=== PATIENT | male | born 1965 | race Caucasian/White ===

== ENCOUNTER → 2016-03-19 | Outpatient (CLI) | payer MEDICARE ==
--- NOTE | 2016-03-19 22:41 | MR ---
EXAMINATION TYPE: MR brain wo con DATE OF EXAM: 03/19/2016 6:41 PM COMPARISON: NONE HISTORY: Type 1 diabetes with neuropathy and memory loss per order. Dizziness and forgetfulness per p atient. TECHNIQUE: Multiplanar, multisequence imaging of the brain and brainstem is performed without IV cont rast. FINDINGS: Diffusion weighted images demonstrate no evidence of a recent infarct or other diffusion abnormality. There is no worrisome extra-axial fluid collection. There is ventricular and sulcal prominence consis tent with mild age-related cerebral atrophy.. Midline structures demonstrate normal morphology. The craniocervical junction appears within normal limits. Loss of normal flow void suggest complete thrombosis of distal left vertebral artery. There i s fluid-filled left maxillary sinus. There is patchy fluid signal posterior left ethmoid sinuses. Rem ainder paranasal sinuses are clear. Globes are intact IMPRESSION: 1. Probable thrombosis or complete occlusion distal left vertebral artery. Consider carotid ultrasoun d follow-up. 2. Mild diffuse cerebral atrophy. 3. Acute left maxillary and posterior ethmoid sinus disease suspected. Clinical correlation advised.
== END | disposition home or self-care (01) ==
LOC: RADMRIMAIN 17:26
PROVIDERS: ATTEND Psychiatry & Neurology Neurology
DX: G31.9 Degenerative disease of nervous system, unspecified (principal); E10.40 Type 1 diabetes mellitus with diabetic neuropathy, unspecified
CPT/HCPCS: 70551

== ENCOUNTER 2016-05-08 23:25 | Observation (INO) | payer MEDICARE ==
--- NOTE | 2016-05-09 00:17 | ED ---
General Adult HPI - General Chief complaint: Chest Pain Stated complaint: HBP/Chest tightness Time Seen by Provider: 05/08/16 23:37 Source: patient, family, RN notes reviewed, old records reviewed Mode of arrival: ambulatory Limitations: no limitations - History of Present Illness Initial comments: This is a 50-year-old male ER for evaluation of chest pain. Patient suffered from diabetes and high blood pressure. Patient presented with anterior chest pain doctor, patient states he took his blood pressure and blood sugar at home both elevated. No prior history of cardiac evaluation or workup. Patient remains a chest pain now. No worsening of symptoms no exacerbating of symptoms , the heaviness appears to come and go - Related Data Allergies Allergy/AdvReac Type Severity Reaction Status Date / Time Sulfa (Sulfonamide Allergy Unknown Verified 05/08/16 23:32 Antibiotics) Review of Systems ROS Statement: Those systems with pertinent positive or pertinent negative responses have been documented in the HPI. ROS Other: All systems not noted in ROS Statement are negative. Past Medical History Past Medical History: Diabetes Mellitus, Hypertension Additional Past Medical History / Comment(s): neuropathy, History of Any Multi-Drug Resistant Organisms: None Reported Past Surgical History: Cholecystectomy Past Psychological History: No Psychological Hx Reported Smoking Status: Never smoker Past Alcohol Use History: None Reported Past Drug Use History: None Reported General Exam Limitations: no limitations General appearance: alert, in no apparent distress, anxious Head exam: Present: atraumatic, normocephalic, normal inspection Eye exam: Present: normal appearance, PERRL, EOMI. Absent: scleral icterus, conjunctival injection, periorbital swelling ENT exam: Present: normal exam, mucous membranes moist Neck exam: Present: normal inspection. Absent: tenderness, meningismus, lymphadenopathy Respiratory exam: Present: normal lung sounds bilaterally. Absent: respiratory distress, wheezes, rales, rhonchi, stridor Cardiovascular Exam: Present: regular rate, normal rhythm, normal heart sounds. Absent: systolic murmur, diastolic murmur, rubs, gallop, clicks GI/Abdominal exam: Present: soft, normal bowel sounds. Absent: distended, tenderness, guarding, rebound, rigid Extremities exam: Present: normal inspection, full ROM, normal capillary refill. Absent: tenderness, pedal edema, joint swelling, calf tenderness Back exam: Present: normal inspection Neurological exam: Present: alert, oriented X3, CN II-XII intact Psychiatric exam: Present: normal affect, normal mood Skin exam: Present: warm, dry, intact, normal color. Absent: rash Course Vital Signs 05/08/16 05/08/16 23:28 23:42 Temperature 98 F Pulse Rate 96 91 Respiratory 20 18 Rate Blood Pressure 195/88 184/84 O2 Sat by Pulse 98 98 Oximetry - Reevaluation(s) Reevaluation #1: 05/09/16 01:42 Date patient still chest pain, consult 15 minutes regarding disease process recommends admission, patient is agreeable EKG Findings - EKG Comments: EKG Findings:: EKG shows normal sinus rhythm rate of 89, OH 140, QRS 86, QTC 425 Medical Decision Making - Medical Decision Making 50 mailed ER for reevaluation chest pain. Patient doesn't from diabetes and high blood pressure, recent elevated blood sugar elevated blood pressure and chest pain and heaviness. Patient not feeling well. Patient will be admitted for cardiac observation and anticoagulation in this serial troponins. Telemetry - Lab Data Result diagrams: 05/08/16 23:48 05/08/16 23:48 Lab Results 05/08/16 05/08/16 05/08/16 Range/Units 23:48 23:48 23:48 WBC 7.3 (3.8-10.6) k/uL RBC 4.75 (4.30-5.90) m/uL Hgb 14.5 (13.0-17.5) gm/dL Hct 44.7 (39.0-53.0) % MCV 94.1 (80.0-100.0) fL MCH 30.5 (25.0-35.0) pg MCHC 32.3 (31.0-37.0) g/dL RDW 12.7 (11.5-15.5) % Plt Count 317 (150-450) k/uL Neutrophils % 59 % Lymphocytes % 27 % Monocytes % 7 % Eosinophils % 4 % Basophils % 0 % Neutrophils # 4.3 (1.3-7.7) k/uL Lymphocytes # 1.9 (1.0-4.8) k/uL Monocytes # 0.5 (0-1.0) k/uL Eosinophils # 0.3 (0-0.7) k/uL Basophils # 0.0 (0-0.2) k/uL PT (9.0-12.0) sec INR (<1.1) APTT (22.0-30.0) sec Sodium 134 L (137-145) mmol/L Potassium 4.9 (3.5-5.1) mmol/L Chloride 103 (98-107) mmol/L Carbon Dioxide 22 (22-30) mmol/L Anion Gap 9 mmol/L BUN 16 (9-20) mg/dL Creatinine 1.10 (0.66-1.25) mg/dL Est GFR (MDRD) Af Amer >60 (>60 ml/min/1.73 sqM) Est GFR (MDRD) Non-Af >60 (>60 ml/min/1.73 sqM) Glucose 259 H (74-99) mg/dL Calcium 9.0 (8.4-10.2) mg/dL Magnesium 1.8 (1.6-2.3) mg/dL Total Bilirubin 0.3 (0.2-1.3) mg/dL AST 22 (17-59) U/L ALT 33 (21-72) U/L Alkaline Phosphatase 110 (38-126) U/L Total Creatine Kinase 62 (55-170) U/L CK-MB (CK-2) 1.5 (0.0-2.4) ng/mL CK-MB (CK-2) Rel Index 2.4 Troponin I <0.012 (0.000-0.034) ng/mL Total Protein 6.5 (6.3-8.2) g/dL Albumin 3.7 (3.5-5.0) g/dL Lipase 73 (23-300) U/L 05/08/16 Range/Units 23:48 WBC (3.8-10.6) k/uL RBC (4.30-5.90) m/uL Hgb (13.0-17.5) gm/dL Hct (39.0-53.0) % MCV (80.0-100.0) fL MCH (25.0-35.0) pg MCHC (31.0-37.0) g/dL RDW (11.5-15.5) % Plt Count (150-450) k/uL Neutrophils % % Lymphocytes % % Monocytes % % Eosinophils % % Basophils % % Neutrophils # (1.3-7.7) k/uL Lymphocytes # (1.0-4.8) k/uL Monocytes # (0-1.0) k/uL Eosinophils # (0-0.7) k/uL Basophils # (0-0.2) k/uL PT 9.7 (9.0-12.0) sec INR 0.9 (<1.1) APTT 23.7 (22.0-30.0) sec Sodium (137-145) mmol/L Potassium (3.5-5.1) mmol/L Chloride (98-107) mmol/L Carbon Dioxide (22-30) mmol/L Anion Gap mmol/L BUN (9-20) mg/dL Creatinine (0.66-1.25) mg/dL Est GFR (MDRD) Af Amer (>60 ml/min/1.73 sqM) Est GFR (MDRD) Non-Af (>60 ml/min/1.73 sqM) Glucose (74-99) mg/dL Calcium (8.4-10.2) mg/dL Magnesium (1.6-2.3) mg/dL Total Bilirubin (0.2-1.3) mg/dL AST (17-59) U/L ALT (21-72) U/L Alkaline Phosphatase (38-126) U/L Total Creatine Kinase (55-170) U/L CK-MB (CK-2) (0.0-2.4) ng/mL CK-MB (CK-2) Rel Index Troponin I (0.000-0.034) ng/mL Total Protein (6.3-8.2) g/dL Albumin (3.5-5.0) g/dL Lipase (23-300) U/L - Radiology Data Radiology results: report reviewed (Chest x-ray is negative for acute disease), image reviewed Critical Care Time Critical Care Time: Yes Total Critical Care Time: 31 Disposition Clinical Impression: Chest pain Disposition: ADMITTED IP TO THIS [facility] Condition: Undetermined Referrals: Sunday Contreras MD [Primary Care Provider] - 1-2 days
[2016-05-09 00:36] LABS: Basophils % (A) 0 %; CH 30.4; CHCM 32.4; Eosinophils # (A) 0.3 k/uL (0-0.7); Eosinophils % (A) 4 %; HCT 44.7 % (39.0-53.0); HDW 2.48; HGB 14.5 gm/dL (13.0-17.5); Luc # (Auto) 0.24; Luc % (Auto) 3; Lymphocytes # (A) 1.9 k/uL (1.0-4.8); Lymphocytes % (A) 27 %; MCH 30.5 pg (25.0-35.0); MCHC 32.3 g/dL (31.0-37.0); MCV 94.1 fL (80.0-100.0); Mean Platelet Volume 7.2; Monocytes # (A) 0.5 k/uL (0-1.0); Monocytes % (A) 7 %; Neutrophils # (A) 4.3 k/uL (1.3-7.7); Neutrophils % (A) 59 %; RBC 4.75 m/uL (4.30-5.90); RDW 12.7 % (11.5-15.5); WBC 7.3 k/uL (3.8-10.6)
[2016-05-09 00:50] LABS: INR 0.9 (<1.1); Partial Thromboplastin Time 23.7 sec (22.0-30.0); Prothrombin Time 9.7 sec (9.0-12.0)
[2016-05-09 00:51] LABS: ALT 33 U/L (21-72); AST 22 U/L (17-59); Alkaline Phosphatase 110 U/L (38-126); Anion Gap 9 mmol/L; Blood Urea Nitrogen 16 mg/dL (9-20); Carbon Dioxide 22 mmol/L (22-30); Chloride 103 mmol/L (98-107); Glucose 259 mg/dL (74-99); Magnesium 1.8 mg/dL (1.6-2.3); Non-African American GFR(MDRD) >60 (>60 ml/min/1.73 sqM); Potassium 4.9 mmol/L (3.5-5.1); Sodium 134 mmol/L (137-145); Total Bilirubin 0.3 mg/dL (0.2-1.3); Total Protein 6.5 g/dL (6.3-8.2)
[2016-05-09 01:01] LABS: Creatine Kinase 62 U/L (55-170)
[2016-05-09 01:14] LABS: Creatine Kinase MB 1.5 ng/mL (0.0-2.4); Troponin I <0.012 ng/mL (0.000-0.034)
--- NOTE | 2016-05-09 01:14 | XR ---
EXAM: XR Chest, 2 Views. CLINICAL HISTORY: Reason: Chest Pain TECHNIQUE: Frontal and lateral views of the chest. COMPARISON: No relevant prior studies available. FINDINGS There is mild cardiomegaly. No overt pulmonary edema. Mild subsegmental atelectasis to the left midlung. No pleural effusion or pneumothorax. No displaced fracture. IMPRESSION: Cardiomegaly. Left midlung atelectasis. No clear acute pulmonary disease.
[2016-05-09] MEDS ORDERED: HEPARIN SODIUM,PORCINE 5,000 UNIT/ML 1 ML VIAL IV PRN (01:38)
[2016-05-09] MEDS ORDERED: MORPHINE SULFATE 4 MG/ML SYRINGE IV PRN (01:38)
[2016-05-09] MEDS ORDERED: HEPARIN SODIUM,PORCINE 5,000 UNIT/ML 1 ML VIAL IV ONE (01:38)
[2016-05-09] MEDS ORDERED: ASPIRIN 81 MG CHEW PO STA (01:38)
[2016-05-09] MEDS ORDERED: NITROGLYCERIN SL TABS 0.4 MG TAB SUBLINGUAL PRN (01:38)
[2016-05-09] MEDS ORDERED: HEPARIN SODIUM,PORCINE/D5W PMX 25,000 UNIT in DEXTROSE/WATER 1 500ML.BAG IV SCH (01:45)
[2016-05-09 04:07] LABS: Glucose,Whole Blood 218 mg/dL (75-99)
[2016-05-09 05:49] LABS: Mean Platelet Volume 6.9
[2016-05-09 06:10] LABS: Creatine Kinase 283 U/L (55-170)
[2016-05-09 06:23] LABS: Troponin I <0.012 ng/mL (0.000-0.034)
[2016-05-09 06:31] LABS: Creatine Kinase MB 4.2 ng/mL (0.0-2.4)
[2016-05-09] MEDS ORDERED: INSULIN LISPRO (humaLOG) 300 UNIT/3 ML VIAL SQ SCH (07:30)
[2016-05-09 07:51] VITALS: RESP 18
[2016-05-09] MEDS ORDERED: REGADENOSON 0.4 MG/5 ML SYRINGE IV ONE (08:44)
[2016-05-09] MEDS ORDERED: AMINOPHYLLINE 500 MG/20 ML VIAL IV PRN (08:44)
[2016-05-09] MEDS ORDERED: BACLOFEN 10 MG TAB PO SCH (09:00)
[2016-05-09] MEDS ORDERED: LISINOPRIL 20 MG TAB PO SCH (09:00)
[2016-05-09] MEDS ORDERED: DULoxetine HCL 30 MG CAPSULE.DR PO SCH (09:00)
--- NOTE | 2016-05-09 09:12 | CONS ---
DATE OF CONSULTATION: CHIEF COMPLAINT: Uncontrolled hypertension. Sarbjit is a 50-year-old gentleman with history of insulin-requiring diabetes, peripheral neuropathy, hypertension, who actually came to hospital initially because of elevated and uncontrolled blood pressures. He also had nausea and was retching for a while. Following that, he developed vague chest pain, due to which he is admitted and Cardiology had been consulted. Past medical history is significant for hypertension and diabetes, peripheral neuropathy. Past surgical history is significant for cholecystectomy. Her is allergic to SULFA. Family history is significant for coronary artery disease in his father. Social history is negative for smoking, EtOH abuse, or drug abuse. REVIEW OF SYSTEMS: HEENT is significant for headache and nausea. CARDIAC: As described above. RESPIRATORY: Negative. GI: Negative. GENITOURINARY: Negative. ALLERGY/IMMUNOLOGY: Negative. SKIN: Negative. MUSCULOSKELETAL: Negative. ENDOCRINE: Negative. HEMATOLOGICAL: Negative. CONSTITUTIONAL: Negative. ONCOLOGICAL: Negative. NEUROLOGICAL: Significant for peripheral neuropathy. Medications at home include Zocor 20 q. daily, Pamelor, nifedipine, Reglan, lisinopril, Levoxyl, insulin, Neurontin, Cymbalta and aspirin. On exam, he is comfortable at rest. Vital signs are stable. There is no jugular venous distention. Carotid upstroke is normal. There is no bruit. Chest is clear to auscultation and percussion. Heart exam reveals first and second heart sounds. No gallop. No murmur, no rub. Abdomen is soft, nontender. Exam of the extremities did not reveal edema. Peripheral pulses are felt. [employer] exam did not reveal focal neurological deficits. Labs show that 2 sets of cardiac enzymes are negative. EKG does not reveal ischemic changes. Potassium is 4.9. Creatinine is 1.1. Hemoglobin is 14.5. ASSESSMENT: 1. Uncontrolled hypertension. 2. Chest pain, atypical, probably related to nausea, vomiting. 3. Multiple coronary risk factors including diabetes and hypertension. PLAN: Will control his blood pressures optimally, please resume the medications that he was on at home including the lisinopril and nifedipine and schedule him for a stress test and echocardiogram this morning and will decide on further course of action based on the test results.
[2016-05-09] MEDS ORDERED: NIFEdipine XL 30 MG TAB.ER.24 PO SCH (09:15)
[2016-05-09] MEDS ORDERED: INSULIN LISPRO (humaLOG) 300 UNIT/3 ML VIAL SQ PRN (09:44)
[2016-05-09] MEDS ORDERED: INSPUCOR MISCELLANE PRN (09:44)
[2016-05-09] MEDS ORDERED: INSULIN PUMP TARGET GLUCOSE 1 EACH MISC MISCELLANE PRN (09:44)
[2016-05-09] MEDS ORDERED: INSULIN PUMP ACTIVE INSULIN 1 EACH MISC MISCELLANE PRN (09:44)
[2016-05-09] MEDS ORDERED: INSULIN PUMP BASAL RATES 1 EACH MISC MISCELLANE PRN (09:44)
[2016-05-09] MEDS ORDERED: LEVOTHYROXINE 75 MCG TAB PO SCH (10:00)
[2016-05-09] MEDS ORDERED: INSULIN LISPRO (For Pump) 100 UNIT/ML VIAL SQ-PUMP SCH (10:00)
[2016-05-09] MEDS ORDERED: NORTRIPTYLINE 25 MG CAP PO SCH (10:00)
--- NOTE | 2016-05-09 11:13 | ECHOF ---
Referral Reason:chest pain MEASUREMENTS -------- HEIGHT: 162.6 cm WEIGHT: 88.5 kg BP: 150/75 RVIDd: 2.5 cm (< 3.3) IVSd: 1.1 cm (0.6 - 1.1) LVIDd: 4.1 cm (3.9 - 5.3) LVPWd: 1.1 cm (0.6 - 1.1) IVSs: 1.5 cm LVIDs: 2.8 cm LVPWs: 1.6 cm LA Diam: 3.0 cm (2.7 - 3.8) Ao Diam: 3.1 cm (2.0 - 3.7) AV Cusp: 2.1 cm (1.5 - 2.6) MV EXCURSION: 13.362 mm (> 18.000) MV EF SLOPE: 45 mm/s (70 - 150) EPSS: 0.3 cm MV E Robert: 0.80 m/s MV DecT: 282 ms MV A Robert: 1.01 m/s MV E/A Ratio: 0.79 FINDINGS -------- Sinus rhythm. This was a technically good study. The left ventricular size is normal. There is borderline concentric left ventricular hypertrophy. Overall left ventricular systolic function is normal with, an EF between 55 - 60 %. The right ventricle is normal in size and function. The left atrial size is normal. The right atrium is normal in size. The aortic valve is trileaflet and appears structurally normal. The mitral valve is normal. Trace tricuspid regurgitation present. The pulmonic valve was not well visualized. The aortic root, ascending aorta and aortic arch are normal. There is no pericardial effusion. CONCLUSIONS -------- 1. Sinus rhythm. 2. There is no pericardial effusion. 3. This was a technically good study. 4. There is borderline concentric left ventricular hypertrophy. 5. The left atrial size is normal. 6. The aortic valve is trileaflet and appears structurally normal. 7. The mitral valve is normal. 8. Trace tricuspid regurgitation present. 9. The pulmonic valve was not well visualized. 10. The aortic root, ascending aorta and aortic arch are normal. ROADMASTER: Gifty Jacques [facility]
[2016-05-09 11:51] VITALS: BP 144/74; PULSE 87; TEMP 98.3
[2016-05-09 11:59] LABS: Creatine Kinase 47 U/L (55-170)
[2016-05-09 12:12] LABS: Creatine Kinase MB 1.4 ng/mL (0.0-2.4); Troponin I <0.012 ng/mL (0.000-0.034)
[2016-05-09] MEDS ORDERED: METOCLOPRAMIDE 10 MG TAB PO SCH (12:30)
[2016-05-09] MEDS ORDERED: INSULIN PUMP MEAL BOLUS 1 UNIT MISC MISCELLANE SCH (12:30)
[2016-05-09 13:08] LABS: Hemoglobin A1C 7.3 % (4.2-6.1)
[2016-05-09 13:36] LABS: Glucose,Whole Blood 282 mg/dL (75-99)
--- NOTE | 2016-05-09 14:17 | NM ---
EXAMINATION TYPE: NM stress Lexiscan cardiolite DATE OF EXAM: 05/09/2016 1:32 PM COMPARISON: EXAMINATION TYPE: NM stress Lexiscan cardiolite DATE OF EXAM: 05/09/2016 1:32 PM COMPARISON: NONE HISTORY: Chest pain TECHNIQUE: After the intravenous administration of 10.5 mCi Tc 99m Sestamibi - Cardiolite resting SP ECT images acquired 45 minutes post injection. The patient received 0.4mg Lexiscan, 26.6 mCi Tc 99m Sestamibi - Stress images obtained [address] injection FINDINGS: Review of stress and rest SPECT images demonstrates no distinct perfusion abnormality. Gated analysi s shows normal wall motion with an estimated left ventricular ejection fraction of 91 %. IMPRESSION: I DO NOT SEE CONVINCING EVIDENCE OF INDUCIBLE ISCHEMIC CHANGE AT THIS TIME.
--- NOTE | 2016-05-09 15:09 | EST ---
DATE OF SERVICE: 05/09/2016 AGE: 50Y SEX: M HT: 64" WT: 195 lbs. Lexiscan Cardiolite Stress Test *Heart Rate Blood Pressure *Rest: 82 Rest: 175/81 * *Max. Achieved: 118 Maximum BP: 193/61 85% PMHR: - 100% PMHR: - *METS: - INDICATIONS: Chest pain. MEDICATIONS: - Baseline rhythm is sinus mechanism, rate of 82, normal axis and intervals. Normal electrocardiogram. Baseline blood pressure 175/81 mmHg. Patient received injection of Lexiscan. Electrocardiograph monitoring revealed no evidence of diagnostic ischemic ST deviation. Cardiolite was injected per protocol. CONCLUSION: 1. Nondiagnostic electrocardiograph stress testing. 2. Nuclear images will be reported separately.
--- NOTE | 2016-05-09 15:45 | P.HPIM ---
History of Present Illness H&P Date: 05/09/16 (DC summary as well) Chief Complaint: Chest pain 50-year-old gentleman with history of hypertension, hypothyroidism, diabetes mellitus type 1 comes in to the hospital with complains of chest pressure. Patient initially noted an elevated blood pressure in the 190 systolic range. Patient also had a headache and generalized weakness during the same period of time. With concern for a heart attack as referred by one of his family members patient came to the hospital for ongoing care. The in the emergency room patient's blood pressure was still elevated however it improved without any further intervention. EKG did not reveal ST-T wave changes. Patient's home medications were restarted. Patient underwent a stress test, Lexiscan which was negative for any reversible ischemia. Patient apparently has been having multiple episodes of elevated blood pressure associated with headaches and malaize for a long time. Review of Systems All systems: negative (Noted in HPI) Past Medical History Past Medical History: Diabetes Mellitus, Hypertension, Thyroid Disorder Additional Past Medical History / Comment(s): neuropathy, insulin pump History of Any Multi-Drug Resistant Organisms: None Reported Past Surgical History: Cholecystectomy Additional Past Surgical History / Comment(s): carpal tunnel release Past Anesthesia/Blood Transfusion Reactions: No Reported Reaction Past Psychological History: No Psychological Hx Reported Smoking Status: Never smoker Past Alcohol Use History: None Reported Past Drug Use History: None Reported - Past Family History Father Family Medical History: Coronary Artery Disease (CAD) Mother Family Medical History: Cancer Additional Family Medical History / Comment(s): brain cancer, choley, appy, hysto Brother(s) Family Medical History: Diabetes Mellitus Sister(s) Family Medical History: Cancer Additional Family Medical History / Comment(s): breast cancer Medications and Allergies Home Medications Medication Instructions Recorded Confirmed Type Aspirin [Adult Low Dose Aspirin EC] 81 mg PO DAILY 05/09/16 05/09/16 History Baclofen [Lioresal] 10 mg PO DAILY 05/09/16 05/09/16 History DULoxetine HCL [Cymbalta] 30 mg PO DAILY 05/09/16 05/09/16 History Gabapentin [Neurontin] 800 mg PO TID 05/09/16 05/09/16 History INSULIN LISPRO (For Pump) [humaLOG 0.01 units SQ-PUMP CONTINUOUS 05/09/16 History (For Pump)] Levothyroxine Sodium [Levoxyl] 150 mcg PO DAILY 05/09/16 05/09/16 History Lisinopril [Zestril] 20 mg PO BID 05/09/16 05/09/16 History Metoclopramide [Reglan] 10 mg PO ACHS 05/09/16 05/09/16 History NIFEdipine [NIFEdipine ER] 30 mg PO DAILY 05/09/16 05/09/16 History Nortriptyline HCl [Pamelor] 75 mg PO DAILY 05/09/16 05/09/16 History Simvastatin [Zocor] 20 mg PO HS 05/09/16 05/09/16 History Allergies Allergy/AdvReac Type Severity Reaction Status Date / Time Sulfa (Sulfonamide Allergy Unknown Verified 05/09/16 07:45 Antibiotics) Physical Exam Vitals: Vital Signs Temp Pulse Pulse Pulse Resp BP BP 05/09/16 11:50 98.3 F 87 18 05/09/16 07:50 97.4 F L 83 18 05/09/16 04:00 98 F 79 16 151/76 05/09/16 03:33 16 05/09/16 02:49 98.1 F 88 16 177/85 05/09/16 02:00 80 18 179/72 BP Pulse Ox 05/09/16 11:50 144/74 96 05/09/16 07:50 150/75 96 05/09/16 04:00 97 05/09/16 03:33 05/09/16 02:49 100 05/09/16 02:00 96 Intake and Output 05/09/16 05/09/16 05/09/16 06:59 14:59 22:59 Intake Total 80 Balance 80 Intake: IV 80 0.9@20 40 Heparin Sodium,Porcine/ 40 D5w Pmx 25,000 unit In Dextrose/Water 1 500ml. bag @ 11.35 UNITS/KG/HR 20.07 mls/hr IV .Q24H TREASURE Rx#:[id number] Oral 0 Other: Voiding Method Toilet Toilet # Voids 1 Physical exam Gen. appearance oriented 3 in no distress Neck is supple no JVD Lungs good air entry clear to auscultation no rhonchi or wheezing Heart S1-S2 heard regular rate and rhythm no murmurs appreciated Abdomen is soft nontender no organomegaly bowel sounds are intact Neurologically cranial nerves II-12 grossly intact no focal motor or sensory deficits noted Skin no abnormalities appreciated Results CBC & Chem 7: 05/09/16 05:32 05/08/16 23:48 Labs: Abnormal Lab Results - Last 24 Hours (Table) 05/09/16 05/09/16 05/09/16 Range/Units 04:05 05:32 05:32 APTT (22.0-30.0) sec POC Glucose (mg/dL) 218 H (75-99) mg/dL Hemoglobin A1c 7.3 H (4.2-6.1) % Total Creatine Kinase 283 H (55-170) U/L CK-MB (CK-2) 4.2 H* (0.0-2.4) ng/mL 05/09/16 05/09/16 05/09/16 Range/Units 08:25 11:20 13:34 APTT 31.0 H (22.0-30.0) sec POC Glucose (mg/dL) 282 H (75-99) mg/dL Hemoglobin A1c (4.2-6.1) % Total Creatine Kinase 47 L (55-170) U/L CK-MB (CK-2) (0.0-2.4) ng/mL Thrombosis Risk Factor Assmnt - Choose All That Apply Any of the Below Risk Factors Present?: Yes Each Factor Represents 1 point: Acute VT, Obesity (BMI >25) Other Risk Factors: No Other congenital or acquired thrombophilia - If yes, enter type in comment: No Thrombosis Risk Factor Assessment Total Risk Factor Score: 2 Thrombosis Risk Factor Assessment Level: Low Risk Assessment and Plan Plan: #1 accelerated hypertension #2 atypical chest pain ACS was ruled out #3 diabetes mellitus type 1 #4 hypothyroidism #5 dyslipidemia Plan Patient's intermittent episodes of headaches and hypertension as patient is normotensive majority of the time and has had these episodes for a long period of time. Serum metanephrines were ordered. This is to rule out a pheochromocytoma. If this is negative I'll defer to Dr. Sunday tucker for 24 hour urine metanephrine collection.
[2016-05-09] MEDS ORDERED: GABAPENTIN 400 MG CAP PO SCH (16:00)
[2016-05-09] MEDS ORDERED: ATORVASTATIN 10 MG TAB PO SCH (21:00)
[2016-05-10] MEDS ORDERED: NON-FORMULARY DRUG (Aspirin [Adult Low Dose Aspirin Ec] 81 MG) PO SCH (09:00)
[2016-05-10] MEDS ORDERED: ASPIRIN 325 MG TAB PO SCH (09:00)
[2016-05-15 13:36] LABS: Metanephrine, Free 26 pg/mL (< OR = 57); Total, Free (MN + NMN) 329 pg/mL (< OR = 205)
== END 2016-05-09 16:00 | disposition home or self-care (01) ==
LOC: EC 23:25 → 3OBS 05-09 01:38
PROVIDERS: ADMIT Hospitalist; ATTEND Hospitalist
DX: R07.89 Other chest pain (principal); Z88.2 Allergy status to sulfonamides; I10 Essential (primary) hypertension; E03.9 Hypothyroidism, unspecified; E10.42 Type 1 diabetes mellitus with diabetic polyneuropathy; Z82.49 Family history of ischemic heart disease and other diseases of the circulatory system; Z80.8 Family history of malignant neoplasm of other organs or systems; Z79.82 Long term (current) use of aspirin; Z79.899 Other long term (current) drug therapy; E78.5 Hyperlipidemia, unspecified; Z96.41 Presence of insulin pump (external) (internal)
CPT/HCPCS: 96365 ×2; 96376 ×2; 99291 ×2; 36415; 93005; 93017; 93306; 83835; 80053; 83036; 82550; 82553; 83690; 83735; 84484; 85025; 85049; 85610; 85730; 71020; 78452; G0378; A9500; J1644 ×2; J2785

== ENCOUNTER → 2020-05-02 | Outpatient (CLI) | payer MEDICARE ==
[2020-05-02 20:30] LABS: Hemoglobin A1C 6.9 % (4.0-6.0)
[2020-05-02 20:56] LABS: African American GFR (CKD) 86.5 (60.0-200.0); Albumin 4.2 g/dL (3.80-4.90); Albumin/Globulin Ratio 2.1 (1.60-3.17); Anion Gap 8.5 mmol/L (4.00-12.00); BUN/Creat Ratio 13.64 Ratio (12.00-20.00); Calcium 9.3 mg/dL (8.7-10.3); Carbon Dioxide 21.5 mmol/L (21.6-31.8); Chol/HDL Ratio 2.94; Non-African American GFR(CKD) 74.6 (60.0-200.0); Potassium 5.1 mmol/L (3.5-5.5); Total Bilirubin 0.2 mg/dL (0.2-1.2); Total Protein 6.2 g/dL (6.2-8.2)
[2020-05-03 01:20] LABS: Urine Creatinine 71.1 mg/dL
== END | disposition home or self-care (01) ==
LOC: LABWHC1 12:09
PROVIDERS: ATTEND Internal Medicine Endocrinology, Diabetes & Metabolism
DX: E11.65 Type 2 diabetes mellitus with hyperglycemia (principal)
CPT/HCPCS: 36415; 80053; 80061; 82043; 82570; 83036

== ENCOUNTER → 2021-01-08 | Outpatient (CLI) | payer MEDICARE ==
--- NOTE | 2021-01-08 21:33 | XR ---
EXAMINATION TYPE: XR knee complete LT, XR tibia fibula LT, XR foot complete LT, XR ankle complete LT DATE OF EXAM: 01/08/2021 CLINICAL HISTORY: Pain after fall injury. TECHNIQUE: Three views of the left knee, ankle, and foot are obtained. 2 views left leg. COMPARISON: None. FINDINGS: There is no acute fracture/dislocation evident in left knee. Meniscal calcification is pre sent. Moderate narrowing medial lateral tibiofemoral compartments. No significant spurring. Overlying soft tissue is unremarkable. Images of the left leg show no acute fracture or dislocation in the tibia or fibula. Overlying soft t issue is unremarkable. Images of the left ankle show moderate subcutaneous edema and soft tissue swelling. On lateral view t here is subtle step-off suspicious for minimally displaced fracture through the lateral malleolus. An kle mortise shows asymmetric lateral narrowing. Medial and posterior malleoli are intact. Moderate to large size inferior calcaneal spur. Images of the left foot show flexion of the toes. There is small vessel arterial vascular calcificati on. Mild to moderate diffuse soft tissue swelling. No acute displaced fracture. IMPRESSION: Soft tissue swelling and subcutaneous edema distally. Suspect acute minimally displaced o blique fracture through the lateral malleolus. Suspect acute or old injury with ankle mortise asymmet ry suggesting ligamentous disruption or tear. Advise orthopedic referral.
== END | disposition home or self-care (01) ==
LOC: RADXRMAIN 17:28
PROVIDERS: ATTEND Internal Medicine
DX: R60.0 Localized edema (principal); W19.XXXA Unspecified fall, initial encounter

== ENCOUNTER 2021-05-21 11:23 | Observation (INO) | payer MEDICARE ==
[2021-05-21] MEDS ORDERED: ASPIRIN 81 MG PO STA (12:10)
[2021-05-21] MEDS ORDERED: NITROGLYCERIN OINT 1 INCH/GM PACKET TOPICAL STA (12:10)
--- NOTE | 2021-05-21 12:21 | ED ---
General Adult HPI - General Chief complaint: Chest Pain Stated complaint: Chest pain/arm numbness Time Seen by Provider: 05/21/21 11:35 Source: patient, RN notes reviewed, old records reviewed Mode of arrival: wheelchair Limitations: no limitations - History of Present Illness Initial comments: This is a 55-year-old male with a past medical history significant for diabetes high blood pressure. Patient comes in today because he has been experiencing c hest pain across his chest and on his arms for the last 2 weeks he states getting progressively worse. Patient states this week and it was significantly worse. Patient denies any shortness of breath. Patient denies any diaphoretic episodes. Patient denies any nausea or vomiting. Patient is abdominal pain. Patient states he is very irritated because he is here he stated he didn't want to come in but his and doctor told me headache. Patient denies any fever chills or cough. Patient has any back pain. Patient denies any headache or lightheadedness. - Related Data Home Medications Medication Instructions Recorded Confirmed Baclofen [Lioresal] 10 mg PO HS 05/09/16 05/21/21 DULoxetine HCL [Cymbalta] 30 mg PO BID 05/09/16 05/21/21 Gabapentin [Neurontin] 800 mg PO QID 05/09/16 05/21/21 INSULIN LISPRO (For Pump) [humaLOG 0.01 units SQ-PUMP CONTINUOUS 05/09/16 05/21/21 (For Pump)] Levothyroxine Sodium [Levoxyl] 150 mcg PO DAILY 05/09/16 05/21/21 Nortriptyline HCl [Pamelor] 75 mg PO HS 05/09/16 05/21/21 Simvastatin [Zocor] 20 mg PO HS 05/09/16 05/21/21 Aspirin EC [Ecotrin] 325 mg PO DAILY 05/21/21 05/21/21 Cholecalciferol (Vitamin D3) 75 mcg PO DAILY 05/21/21 05/21/21 [Vitamin D3 (3000 Iu)] Lisinopril-Hctz 20-25 mg 1 tab PO DAILY 05/21/21 05/21/21 [Zestoretic 20-25] NIFEdipine [NIFEdipine ER] 30 mg PO DAILY 05/21/21 05/21/21 Nortriptyline [Pamelor] 25 mg PO QAM 05/21/21 05/21/21 Vitamin B (Unknown) 1 tab PO DAILY 05/21/21 05/21/21 Allergies Allergy/AdvReac Type Severity Reaction Status Date / Time Sulfa (Sulfonamide Allergy Unknown Verified 05/21/21 13:14 Antibiotics) Childhood Review of Systems ROS Statement: Those systems with pertinent positive or pertinent negative responses have been documented in the HPI. ROS Other: All systems not noted in ROS Statement are negative. Past Medical History Past Medical History: Diabetes Mellitus, Hypertension, Thyroid Disorder Additional Past Medical History / Comment(s): neuropathy, insulin pump History of Any Multi-Drug Resistant Organisms: None Reported Past Surgical History: Cholecystectomy Additional Past Surgical History / Comment(s): carpal tunnel release Past Anesthesia/Blood Transfusion Reactions: No Reported Reaction Past Psychological History: No Psychological Hx Reported Smoking Status: Never smoker Past Alcohol Use History: None Reported Past Drug Use History: None Reported - Past Family History Father Family Medical History: Coronary Artery Disease (CAD) Mother Family Medical History: Cancer Additional Family Medical History / Comment(s): brain cancer, choley, appy, hysto Brother(s) Family Medical History: Diabetes Mellitus Sister(s) Family Medical History: Cancer Additional Family Medical History / Comment(s): breast cancer General Exam - General Exam Comments Initial Comments: GENERAL: Patient is well-developed and well-nourished. Patient is nontoxic and well- hydrated and is in no acute distress. ENT: Neck is soft and supple. No significant lymphadenopathy is noted. Oropharynx is clear. Moist mucous membranes. Neck has full range of motion without eliciting any pain. EYES: The sclera were anicteric and conjunctiva were pink and moist. Extraocular movements were intact and pupils were equal round and reactive to light. Eyelids were unremarkable. PULMONARY: Unlabored respirations. Good breath sounds bilaterally. No audible rales rhonchi or wheezing was noted. CARDIOVASCULAR: There is a regular rate and rhythm without any murmurs gallops or rubs. ABDOMEN: Soft and nontender with normal bowel sounds. SKIN: Skin is clear with no lesions or rashes and otherwise unremarkable. NEUROLOGIC: Patient is alert and oriented x3. Cranial nerves II through XII are grossly intact. Motor and sensory are also intact. Normal speech, volume and content. Symmetrical smile. MUSCULOSKELETAL: Normal extremities with adequate strength and full range of motion. No lower extremity swelling or edema. No calf tenderness. LYMPHATICS: No significant lymphadenopathy is noted PSYCHIATRIC: Normal psychiatric evaluation. Patient is upset that he is here and he is swearing about the fact that he had to come in at all. Limitations: no limitations Course Vital Signs 05/21/21 05/21/21 11:32 14:16 Temperature 98 F Pulse Rate 97 81 Respiratory 16 16 Rate Blood Pressure 181/92 164/79 O2 Sat by Pulse 97 97 Oximetry Medical Decision Making - Medical Decision Making EKG shows sinus rhythm at 94 bpm VT interval is on a 49 1 QT Interval 326 QTC Is 378. Patient's EKG Shows No ST Segment Elevation or Depression. Chest shows no acute abnormality. - Lab Data Result diagrams: 05/21/21 12:30 05/21/21 12:30 Lab Results 05/21/21 05/21/21 05/21/21 Range/Units 12:30 12:30 12:30 WBC 8.6 (3.8-10.6) k/uL RBC 4.83 (4.30-5.90) m/uL Hgb 14.2 (13.0-17.5) gm/dL Hct 43.2 (39.0-53.0) % MCV 89.6 (80.0-100.0) fL MCH 29.3 (25.0-35.0) pg MCHC 32.7 (31.0-37.0) g/dL RDW 14.0 (11.5-15.5) % Plt Count 433 (150-450) k/uL MPV 7.4 Neutrophils % 73 % Lymphocytes % 17 % Monocytes % 5 % Eosinophils % 2 % Basophils % 0 % Neutrophils # 6.3 (1.3-7.7) k/uL Lymphocytes # 1.5 (1.0-4.8) k/uL Monocytes # 0.5 (0-1.0) k/uL Eosinophils # 0.2 (0-0.7) k/uL Basophils # 0.0 (0-0.2) k/uL PT 9.6 (9.0-12.0) sec INR 0.9 (<1.2) APTT 22.7 (22.0-30.0) sec Sodium 134 L (137-145) mmol/L Potassium 4.7 (3.5-5.1) mmol/L Chloride 101 (98-107) mmol/L Carbon Dioxide 22 (22-30) mmol/L Anion Gap 11 mmol/L BUN 15 (9-20) mg/dL Creatinine 1.00 (0.66-1.25) mg/dL Est GFR (CKD-EPI)AfAm >90 (>60 ml/min/1.73 sqM) Est GFR (CKD-EPI)NonAf 83 (>60 ml/min/1.73 sqM) Glucose 162 H (74-99) mg/dL POC Glucose (mg/dL) (75-99) mg/dL POC Glu [employer] Instructor ID Calcium 8.9 (8.4-10.2) mg/dL Magnesium 1.8 (1.6-2.3) mg/dL Total Bilirubin 0.5 (0.2-1.3) mg/dL AST 29 (17-59) U/L ALT 26 (4-49) U/L Alkaline Phosphatase 139 H (38-126) U/L Troponin I (0.000-0.034) ng/mL Total Protein 7.6 (6.3-8.2) g/dL Albumin 4.0 (3.5-5.0) g/dL 05/21/21 05/21/21 Range/Units 12:30 14:15 WBC (3.8-10.6) k/uL RBC (4.30-5.90) m/uL Hgb (13.0-17.5) gm/dL Hct (39.0-53.0) % MCV (80.0-100.0) fL MCH (25.0-35.0) pg MCHC (31.0-37.0) g/dL RDW (11.5-15.5) % Plt Count (150-450) k/uL MPV Neutrophils % % Lymphocytes % % Monocytes % % Eosinophils % % Basophils % % Neutrophils # (1.3-7.7) k/uL Lymphocytes # (1.0-4.8) k/uL Monocytes # (0-1.0) k/uL Eosinophils # (0-0.7) k/uL Basophils # (0-0.2) k/uL PT (9.0-12.0) sec INR (<1.2) APTT (22.0-30.0) sec Sodium (137-145) mmol/L Potassium (3.5-5.1) mmol/L Chloride (98-107) mmol/L Carbon Dioxide (22-30) mmol/L Anion Gap mmol/L BUN (9-20) mg/dL Creatinine (0.66-1.25) mg/dL Est GFR (CKD-EPI)AfAm (>60 ml/min/1.73 sqM) Est GFR (CKD-EPI)NonAf (>60 ml/min/1.73 sqM) Glucose (74-99) mg/dL POC Glucose (mg/dL) 173 H (75-99) mg/dL POC Glu [employer] Dimensional Art Instructor ID Wilver Leblanc Calcium (8.4-10.2) mg/dL Magnesium (1.6-2.3) mg/dL Total Bilirubin (0.2-1.3) mg/dL AST (17-59) U/L ALT (4-49) U/L Alkaline Phosphatase (38-126) U/L Troponin I <0.012 (0.000-0.034) ng/mL Total Protein (6.3-8.2) g/dL Albumin (3.5-5.0) g/dL Disposition Clinical Impression: Chest pain Disposition: ADMITTED IP TO THIS HOSP Referrals: Tejas Myers MD [Primary Care Provider] - 1-2 days Time of Disposition: 14:05
--- NOTE | 2021-05-21 12:58 | XR ---
EXAMINATION TYPE: XR chest 2V DATE OF EXAM: 05/21/2021 COMPARISON: X-ray dated 05/09/2016 HISTORY: Chest pain TECHNIQUE: Frontal and lateral views of the chest are obtained. FINDINGS: Slightly congested pulmonary vasculature which could be due to incomplete lung expansion however pulm onary edema cannot be excluded, please correlate clinically. Linear atelectasis seen in the left mid and lower lung zones. Minimal left basal pulmonary infiltration/infection can't be excluded. Grossly unremarkable lungs oth erwise. No sizable pleural effusion or definite pneumothorax. No gross cardiomegaly. Degenerative viri nges of the lower cervical spine. IMPRESSION: As above.
[2021-05-21 13:01] LABS: INR 0.9 (<1.2); Partial Thromboplastin Time 22.7 sec (22.0-30.0); Prothrombin Time 9.6 sec (9.0-12.0)
[2021-05-21 13:04] LABS: ALT 26 U/L (4-49); AST 29 U/L (17-59); African American GFR (CKD) >90 (>60 ml/min/1.73 sqM); Alkaline Phosphatase 139 U/L (38-126); Anion Gap 11 mmol/L; Blood Urea Nitrogen 15 mg/dL (9-20); Calcium 8.9 mg/dL (8.4-10.2); Carbon Dioxide 22 mmol/L (22-30); Chloride 101 mmol/L (98-107); Glucose 162 mg/dL (74-99); Magnesium 1.8 mg/dL (1.6-2.3); Non-African American GFR(CKD) 83 (>60 ml/min/1.73 sqM); Potassium 4.7 mmol/L (3.5-5.1); Sodium 134 mmol/L (137-145); Total Bilirubin 0.5 mg/dL (0.2-1.3); Total Protein 7.6 g/dL (6.3-8.2)
[2021-05-21 13:07] LABS: Basophils % (A) 0 %; Eosinophils # (A) 0.2 k/uL (0-0.7); Eosinophils % (A) 2 %; HCT 43.2 % (39.0-53.0); HGB 14.2 gm/dL (13.0-17.5); Lymphocytes # (A) 1.5 k/uL (1.0-4.8); Lymphocytes % (A) 17 %; MCH 29.3 pg (25.0-35.0); MCHC 32.7 g/dL (31.0-37.0); MCV 89.6 fL (80.0-100.0); Mean Platelet Volume 7.4; Monocytes # (A) 0.5 k/uL (0-1.0); Monocytes % (A) 5 %; Neutrophils # (A) 6.3 k/uL (1.3-7.7); Neutrophils % (A) 73 %; Platelet Count 433 k/uL (150-450); RBC 4.83 m/uL (4.30-5.90); WBC 8.6 k/uL (3.8-10.6)
--- NOTE | 2021-05-21 13:48 | P.HPIM ---
History of Present Illness H&P Date: 05/21/21 History of Presenting Illness: Patient is a very pleasant 55-year-old male with a past medical history of type 1 insulin-dependent diabetes mellitus, hypothyroidism, neuropathy, hypertension and hyperlipidemia. He presented to the emergency department with a chief complaint of intermittent left anterior wall chest pain. patient reports experiencing intermittent chest pain to left anterior chest radiating across his chest and into bilateral arms off and on for the past 2 weeks. Patient denies anything making it any better or worse and he denies having any associated symptoms including dizziness, lightheadedness, palpitations, shortness of breath, dyspnea with exertion, nausea, or experiencing any numbness/tingling/weakness/swelling in his extremities. Patient reports he's had one prior episode similar to this and was informed by his primary doctor that he had elevated potassium levels. Patient reports he was encouraged by his and his primary doctor to come into the emergency department for cardiac workup. In the ER and EKG was completed showing normal sinus rhythm at 94 bpm with no noted T wave or ST abnormality showing no signs of acute ischemia. Labs completed revealing normal troponin of less than 0.012 and unremarkable CBC and CMP. Chest x-ray was completed revealing mild pulmonary vascular congestion. upon initial evaluation patient hypertensive with blood pressure 181/92. Review of systems: Pertinent positives and negatives as discussed in HPI, a complete review of systems was performed and all other systems are negative. Physical exam: Vital signs reviewed and stable. General: Nontoxic, no distress and appears stated age. Derm: Skin warm and dry, normal coloration for ethnicity. Head: Atraumatic, normocephalic and symmetric. Eyes: EOMs intact, no lid lag, and anicteric sclera Mouth: no lip lesions, mucus membranes moist Cardiovascular: regular rate and rhythm with normal S1S2, no murmur, positive posterior tibial pulses bilaterally, and cap refill < 2 seconds. Lungs: Respirations even, regular, and unlabored on room air. Lungs CTA bilaterally, no rhonchi, no rales, no wheezing, and no accessory muscle usage. Abdominal: soft, nontender to palpation, no guarding, no appreciable organomegaly Ext: ROM intact. No gross muscle atrophy, no edema, no contractures Neuro: Speech clear, face symmetrical and CN II-XII grossly intact with no noted focal neuro deficits Psych: Alert and oriented to person, place, time, and situation. Appropriate and pleasant affect. Assessment and Plan of Care: Chest pain, rule out acute coronary event Hypertensive urgency -Cardiology consult, appreciate further recommendations -Telemetry monitoring -Trend troponins -Cardiac diet, NPO at midnight -Aspirin, atorvastatin, and metoprolol -Lipid profile with a.m. labs. -Echocardiogram -Monitor vital signs and continue daily aspirin, atorvastatin, lisinopril/hydrochlorothiazide, and Procardia. Type 1 insulin-dependent diabetes mellitus Glycemic protocol with blood glucose checks before meals at bedtime. Patient may continue personal home insulin pump. Hypothyroidism continue daily medication regimen with bubble pyroxene 150 g each morning. Hyperlipidemia continue daily medication regimen with atorvastatin 10 mg nightly. Neuropathy Patient to continue daily medication regimen with Neurontin. The patient is admitted with an anticipated less than 2 midnight stay for evaluation of Chest pain CODE STATUS: full code DVT prophylaxis: heparin Discussed with: patient and RN Anticipated discharge date: likely tomorrow Anticipated discharge place: home A total of 42 minutes was spent on the care of this complex patient more than 50% of the time was spent in counseling and care coordination. Past Medical History Past Medical History: Diabetes Mellitus, Hypertension, Thyroid Disorder Additional Past Medical History / Comment(s): neuropathy, insulin pump History of Any Multi-Drug Resistant Organisms: None Reported Past Surgical History: Cholecystectomy Additional Past Surgical History / Comment(s): carpal tunnel release Past Anesthesia/Blood Transfusion Reactions: No Reported Reaction Past Psychological History: No Psychological Hx Reported Smoking Status: Never smoker Past Alcohol Use History: None Reported Past Drug Use History: None Reported - Past Family History Father Family Medical History: Coronary Artery Disease (CAD) Mother Family Medical History: Cancer Additional Family Medical History / Comment(s): brain cancer, choley, appy, hysto Brother(s) Family Medical History: Diabetes Mellitus Sister(s) Family Medical History: Cancer Additional Family Medical History / Comment(s): breast cancer Medications and Allergies Home Medications Medication Instructions Recorded Confirmed Type Baclofen [Lioresal] 10 mg PO HS 05/09/16 05/21/21 History DULoxetine HCL [Cymbalta] 30 mg PO BID 05/09/16 05/21/21 History Gabapentin [Neurontin] 800 mg PO QID 05/09/16 05/21/21 History INSULIN LISPRO (For Pump) [humaLOG 0.01 units SQ-PUMP CONTINUOUS 05/09/16 05/21/21 History (For Pump)] Levothyroxine Sodium [Levoxyl] 150 mcg PO DAILY 05/09/16 05/21/21 History Nortriptyline HCl [Pamelor] 75 mg PO HS 05/09/16 05/21/21 History Simvastatin [Zocor] 20 mg PO HS 05/09/16 05/21/21 History Aspirin EC [Ecotrin] 325 mg PO DAILY 05/21/21 05/21/21 History Cholecalciferol (Vitamin D3) 75 mcg PO DAILY 05/21/21 05/21/21 History [Vitamin D3 (3000 Iu)] Lisinopril-Hctz 20-25 mg 1 tab PO DAILY 05/21/21 05/21/21 History [Zestoretic 20-25] NIFEdipine [NIFEdipine ER] 30 mg PO DAILY 05/21/21 05/21/21 History Nortriptyline [Pamelor] 25 mg PO QAM 05/21/21 05/21/21 History Vitamin B (Unknown) 1 tab PO DAILY 05/21/21 05/21/21 History Allergies Allergy/AdvReac Type Severity Reaction Status Date / Time Sulfa (Sulfonamide Allergy Unknown Verified 05/21/21 13:14 Antibiotics) Childhood Physical Exam Vitals: Vital Signs Temp Pulse Resp BP Pulse Ox 05/21/21 11:32 98 F 97 16 181/92 97 Intake and Output 05/20/21 05/21/21 05/21/21 22:59 06:59 14:59 Other: Weight 85.729 kg Results CBC & Chem 7: 05/21/21 12:30 05/21/21 12:30 Labs: Abnormal Lab Results - Last 24 Hours (Table) 05/21/21 Range/Units 12:30 Sodium 134 L (137-145) mmol/L Glucose 162 H (74-99) mg/dL Alkaline Phosphatase 139 H (38-126) U/L
[2021-05-21 14:16] LABS: Glucose,Whole Blood 173 mg/dL (75-99)
[2021-05-21] MEDS ORDERED: NITROGLYCERIN SL TABS 0.4 MG TAB SUBLINGUAL PRN (14:21)
[2021-05-21] MEDS: INSULIN LISPRO (For Pump) 100 UNIT/ML VIAL SQ-PUMP SCH (14:37)
[2021-05-21 17:38] LABS: Glucose,Whole Blood 165 mg/dL (75-99)
[2021-05-21] MEDS: GABAPENTIN 400 MG CAP PO SCH ×2 (17:45→22:47)
[2021-05-21] MEDS: LISINOPRIL-HCTZ 20-25 MG 1 EACH TAB PO SCH (20:29)
[2021-05-21] MEDS: DULoxetine HCL 30 MG CAPSULE.DR PO SCH (20:30)
[2021-05-21] MEDS: NIFEdipine XL 30 MG TAB.ER.24 PO SCH (20:30)
[2021-05-21] MEDS ORDERED: ATORVASTATIN 10 MG TAB PO SCH (21:00)
[2021-05-21] MEDS ORDERED: NORTRIPTYLINE 25 MG CAP PO SCH (21:00)
[2021-05-21] MEDS ORDERED: BACLOFEN 10 MG TAB PO SCH (21:00)
[2021-05-21 21:23] LABS: Glucose,Whole Blood 223 mg/dL (75-99)
[2021-05-21 22:37] VITALS: RESP 16
[2021-05-22] MEDS: HEPARIN SODIUM,PORCINE/PF 5,000 UNIT/0.5 ML SYRINGE SQ SCH ×3 (00:03→08:47)
[2021-05-22] MEDS ORDERED: LEVOTHYROXINE 75 MCG TAB PO SCH (06:30)
[2021-05-22 07:13] LABS: Glucose,Whole Blood 158 mg/dL (75-99)
--- NOTE | 2021-05-22 07:48 | ECHOF ---
Referral Reason:Evaluate structure and function of heart MEASUREMENTS -------- HEIGHT: 162.6 cm WEIGHT: 85.3 kg BP: 166/79 RVIDd: 2.9 cm (< 3.3) IVSd: 1.2 cm (0.6 - 1.1) LVIDd: 4.2 cm (3.9 - 5.3) LVPWd: 1.3 cm (0.6 - 1.1) IVSs: 1.7 cm LVIDs: 2.7 cm LVPWs: 1.5 cm LA Diam: 3.1 cm (2.7 - 3.8) LAESV Index (A-L): 15.63 ml/m Ao Diam: 2.9 cm (2.0 - 3.7) AV Cusp: 2.2 cm (1.5 - 2.6) MV EXCURSION: 14.881 mm (> 18.000) MV EF SLOPE: 71 mm/s (70 - 150) EPSS: 0.6 cm MV E Robert: 0.72 m/s MV DecT: 185 ms MV A Robert: 1.00 m/s MV E/A Ratio: 0.72 FINDINGS -------- Sinus rhythm. This was a technically adequate study. The left ventricular size is normal. There is mild concentric left ventricular hypertrophy. Overa ll left ventricular systolic function is normal with, an EF between 60 - 65 %. The right ventricle is normal in size. Normal LA size by volume 22+/-6 ml/m2. The right atrium is normal in size. Interatrial and interventricular septum intact. The aortic valve is trileaflet, and appears structurally normal. No aortic stenosis or regurgitation. The mitral valve is normal. The tricuspid valve appears structurally normal. Unable to estimate RVSP due to inadequate TR jet s pectral doppler profile. Trace/mild (physiologic) pulmonic regurgitation. The aortic root size is normal. IVC Not well visulized. There is no pericardial effusion. CONCLUSIONS -------- 1. The left ventricular size is normal. 2. There is mild concentric left ventricular hypertrophy. 3. Overall left ventricular systolic function is normal with, an EF between 60 - 65 %. 4. Trace/mild (physiologic) pulmonic regurgitation. 5. There is no pericardial effusion. COMPENSATION BUSINESS PARTNER: Gifty Jacques [facility]
[2021-05-22] MEDS: DULoxetine HCL 30 MG CAPSULE.DR PO SCH (08:39)
[2021-05-22] MEDS: GABAPENTIN 400 MG CAP PO SCH ×2 (08:39→13:22)
--- NOTE | 2021-05-22 08:40 | P.CRDCN ---
History of Present Illness Consult date: 05/22/21 History of present illness: Attempted to evaluate patient this morning. Patient irritable and rude immediately upon entering patients room. Patient asked "where is the ca rdiologist?" I explained that he was in a procedure and would be in shortly to see him. Patient responded "Well, thats not my problem". Patient is refusing to be seen by nurse practitioner. Will await evaluation by Dr. Moya. Past Medical History Past Medical History: Diabetes Mellitus, Hypertension, Thyroid Disorder Additional Past Medical History / Comment(s): neuropathy, insulin pump History of Any Multi-Drug Resistant Organisms: None Reported Past Surgical History: Cholecystectomy Additional Past Surgical History / Comment(s): carpal tunnel release Past Anesthesia/Blood Transfusion Reactions: No Reported Reaction Past Psychological History: No Psychological Hx Reported Smoking Status: Never smoker Past Alcohol Use History: None Reported Past Drug Use History: None Reported - Past Family History Father Family Medical History: Coronary Artery Disease (CAD) Mother Family Medical History: Cancer Additional Family Medical History / Comment(s): brain cancer, choley, appy, hysto Brother(s) Family Medical History: Diabetes Mellitus Sister(s) Family Medical History: Cancer Additional Family Medical History / Comment(s): breast cancer Medications and Allergies Home Medications Medication Instructions Recorded Confirmed Type Baclofen [Lioresal] 10 mg PO HS 05/09/16 05/21/21 History DULoxetine HCL [Cymbalta] 30 mg PO BID 05/09/16 05/21/21 History Gabapentin [Neurontin] 800 mg PO QID 05/09/16 05/21/21 History INSULIN LISPRO (For Pump) [humaLOG 0.01 units SQ-PUMP CONTINUOUS 05/09/16 05/21/21 History (For Pump)] Levothyroxine Sodium [Levoxyl] 150 mcg PO DAILY 05/09/16 05/21/21 History Nortriptyline HCl [Pamelor] 75 mg PO HS 05/09/16 05/21/21 History Simvastatin [Zocor] 20 mg PO HS 05/09/16 05/21/21 History Aspirin EC [Ecotrin] 325 mg PO DAILY 05/21/21 05/21/21 History Cholecalciferol (Vitamin D3) 75 mcg PO DAILY 05/21/21 05/21/21 History [Vitamin D3 (3000 Iu)] Lisinopril-Hctz 20-25 mg 1 tab PO DAILY 05/21/21 05/21/21 History [Zestoretic 20-25] NIFEdipine [NIFEdipine ER] 30 mg PO DAILY 05/21/21 05/21/21 History Nortriptyline [Pamelor] 25 mg PO QAM 05/21/21 05/21/21 History Vitamin B (Unknown) 1 tab PO DAILY 05/21/21 05/21/21 History Allergies Allergy/AdvReac Type Severity Reaction Status Date / Time Sulfa (Sulfonamide Allergy Unknown Verified 05/21/21 13:14 Antibiotics) Childhood Physical Exam Vitals: Vital Signs Temp Pulse Pulse Resp BP BP Pulse Ox 05/22/21 07:00 97.8 F 82 16 142/75 97 05/22/21 02:34 97.5 F L 96 16 144/71 97 05/21/21 19:01 98.1 F 103 H 16 191/76 98 05/21/21 18:00 97.9 F 104 H 18 171/75 98 05/21/21 14:16 81 16 164/79 97 05/21/21 11:32 98 F 97 16 181/92 97 Intake and Output 05/21/21 05/22/21 05/22/21 22:59 06:59 14:59 Other: # Voids 2 2 Weight 85.729 kg Results 05/21/21 12:30 05/21/21 12:30 Cardiac Enzymes 05/21/21 05/21/21 05/21/21 Range/Units 12:30 12:30 14:16 AST 29 (17-59) U/L Troponin I <0.012 0.016 (0.000-0.034) ng/mL 05/21/21 05/21/21 Range/Units 19:03 21:25 AST (17-59) U/L Troponin I <0.012 <0.012 (0.000-0.034) ng/mL Coagulation 05/21/21 Range/Units 12:30 PT 9.6 (9.0-12.0) sec APTT 22.7 (22.0-30.0) sec CBC 05/21/21 Range/Units 12:30 WBC 8.6 (3.8-10.6) k/uL RBC 4.83 (4.30-5.90) m/uL Hgb 14.2 (13.0-17.5) gm/dL Hct 43.2 (39.0-53.0) % Plt Count 433 (150-450) k/uL Comprehensive Metabolic Panel 05/21/21 Range/Units 12:30 Sodium 134 L (137-145) mmol/L Potassium 4.7 (3.5-5.1) mmol/L Chloride 101 (98-107) mmol/L Carbon Dioxide 22 (22-30) mmol/L BUN 15 (9-20) mg/dL Creatinine 1.00 (0.66-1.25) mg/dL Glucose 162 H (74-99) mg/dL Calcium 8.9 (8.4-10.2) mg/dL AST 29 (17-59) U/L ALT 26 (4-49) U/L Alkaline Phosphatase 139 H (38-126) U/L Total Protein 7.6 (6.3-8.2) g/dL Albumin 4.0 (3.5-5.0) g/dL Current Medications Generic Name Dose Route Start Last Admin Trade Name Freq PRN Reason Stop Dose Admin Aspirin 325 mg 05/22/21 09:00 Aspirin 325 Mg Tab PO DAILY TREASURE Atorvastatin Calcium 10 mg 05/21/21 21:00 05/21/21 19:40 Atorvastatin 10 Mg Tab PO 10 mg HS TREASURE Administration Baclofen 10 mg 05/21/21 21:00 05/21/21 19:40 Baclofen 10 Mg Tab PO 10 mg HS TREASURE Administration Cholecalciferol 75 mcg 05/22/21 09:00 Cholecalciferol 25 Mcg (1000 Iu) Tablet PO DAILY TREASURE Duloxetine HCl 30 mg 05/21/21 21:00 05/21/21 20:30 Duloxetine Hcl 30 Mg Capsule.Dr PO 30 mg BID TREASURE Administration Gabapentin 800 mg 05/21/21 18:00 05/21/21 22:47 Gabapentin 400 Mg Cap PO 800 mg QID TREASURE Administration Lisinopril/HCTZ 1 each 05/22/21 09:00 05/21/21 20:29 Lisinopril-Hctz 20-25 Mg 1 Each Tab PO 1 each DAILY TREASURE Administration Heparin Sodium (Porcine) 5,000 unit 05/22/21 00:00 05/22/21 00:03 Heparin Sodium,Porcine/Pf 5,000 Unit/0.5 Ml Syringe SQ Not Given Q8HR TREASURE Insulin Human Lispro 0.01 unit 05/21/21 14:00 05/21/21 14:37 Insulin Lispro (For Pump) 100 Unit/Ml Vial SQ-PUMP Not Given CONTINUOUS TREASURE Levothyroxine Sodium 150 mcg 05/22/21 06:30 05/22/21 06:11 Levothyroxine 75 Mcg Tab PO 150 mcg 0630 TREASURE Administration Miscellaneous Information 0 unit 05/21/21 23:52 05/22/21 00:00 Insulin Pump Correction Bolus 1 Unit Misc MISCELLANE 4.38 unit ACHS PRN Administration Blood Sugar - High Protocol Nifedipine 30 mg 05/22/21 09:00 05/21/21 20:30 Nifedipine Xl 30 Mg Tab.Er.24 PO 30 mg DAILY TREASURE Administration Nitroglycerin 0.4 mg 05/21/21 14:21 Nitroglycerin Sl Tabs 0.4 Mg Tab SUBLINGUAL Q5M PRN Chest Pain Nortriptyline HCl 25 mg 05/22/21 09:00 Nortriptyline 25 Mg Cap PO QAM TREASURE Nortriptyline HCl 75 mg 05/21/21 21:00 05/21/21 20:30 Nortriptyline 25 Mg Cap PO 75 mg HS TREASURE Administration Intake and Output 05/21/21 05/22/21 05/22/21 22:59 06:59 14:59 Other: # Voids 2 2 Weight 85.729 kg 05/21/21 12:30 05/21/21 12:30
[2021-05-22] MEDS: LISINOPRIL-HCTZ 20-25 MG 1 EACH TAB PO SCH (08:42)
[2021-05-22] MEDS ORDERED: ASPIRIN 325 MG TAB PO SCH (09:00)
[2021-05-22] MEDS ORDERED: VITAMIN B PO SCH (09:00)
[2021-05-22] MEDS ORDERED: NORTRIPTYLINE 25 MG CAP PO SCH (09:00)
[2021-05-22] MEDS ORDERED: CHOLECALCIFEROL 25 MCG (1000 IU) TABLET PO SCH (09:00)
[2021-05-22] MEDS ORDERED: AMINOPHYLLINE 500 MG/20 ML VIAL IV PRN (09:55)
[2021-05-22] MEDS ORDERED: CAFFEINE CITRATE 60 MG/3 ML VIAL IV PRN (09:55)
[2021-05-22] MEDS ORDERED: REGADENOSON 0.4 MG/5 ML SYRINGE IV PRN (09:55)
--- NOTE | 2021-05-22 10:01 | P.CRDCN ---
History of Present Illness History of present illness: HISTORY OF PRESENTING ILLNESS This is a pleasant 55-year-old with past medical history significant for diabetes mellitus type 2 insulin-dependent, neuropathy, hypertension, hyperlipidemia. Patient admits to 2 weeks of chest pain which feels like a sharp sensation going down into both arms not associated with any shortness breath, nausea, diaphoresis or exertion. He was mainly concerned that he had been told hyperkalemia could cause chest pain and therefore wanted his potassium checked and presented to his primary care physician for a potassium check. Primary care physician recommended going to emergency department. Troponins have been normal and chest pain as he stop on its own. He denies any similar symptoms. His last stress test was approximately 4-5 years ago. Patient is not very active secondary to orthopedic issues and his legs. He states he is unable to walk on a treadmill. EKG shows normal sinus rhythm, normal axis, no significant ST or T-wave abnormalities. REVIEW OF SYSTEMS At the time of my exam: CONSTITUTIONAL: Denies fever or chills. CARDIOVASCULAR: +chest pain, no shortness of breath, orthopnea, PND or palpitations. RESPIRATORY: Denies cough. GASTROINTESTINAL: Denies abdominal pain, diarrhea, constipation, nausea or vomiting. MUSCULOSKELETAL: Denies myalgias. NEUROLOGIC: Denies numbness, tingling or weakness. ENDOCRINE: Denies fatigue, weight change, polydipsia or polyurina. GENITOURINARY: Denies burning, hematuria or urgency with micturation. HEMATOLOGIC: Denies history of anemia or bleeding. PHYSICAL EXAMINATION Vital signs reviewed. CONSTITUTIONAL: No apparent distress. HEENT: Head is normocephalic. Pupils are equal, round. Sclerae anicteric. Mucous membranes of the mouth are moist. No JVD. No carotid bruit. CHEST EXAMINATION: Lungs are clear to auscultation. No chest wall tenderness is noted on palpation or with deep breathing. HEART EXAMINATION: Regular rate and rhythm. S1, S2 heard. No murmurs, gallops or rub. ABDOMEN: Soft, nontender. Positive bowel sounds. EXTREMITIES: 2+ peripheral pulses, no lower extremity edema and no calf tenderness. NEUROLOGIC EXAMINATION: Patient is awake, alert and oriented x3. ASSESSMENT 1. Atypical chest pain, troponins negative 3 acute coronary syndrome ruled out 2. Diabetes mellitus type 2 with diabetic neuropathy 3. Hypertension 4. Hyperlipidemia PLAN Patient's chest pain overall appears somewhat atypical however also has a number of risk factors and usually not very active secondary to neuropathy and orthopedic issues. Concern of possible additional underlying neuropathy masking some of the symptoms. We discussed recommendations for stress testing and patient is agreeable. If stress test normal patient may be discharged home. Past Medical History Past Medical History: Diabetes Mellitus, Hypertension, Thyroid Disorder Additional Past Medical History / Comment(s): neuropathy, insulin pump History of Any Multi-Drug Resistant Organisms: None Reported Past Surgical History: Cholecystectomy Additional Past Surgical History / Comment(s): carpal tunnel release Past Anesthesia/Blood Transfusion Reactions: No Reported Reaction Past Psychological History: No Psychological Hx Reported Smoking Status: Never smoker Past Alcohol Use History: None Reported Past Drug Use History: None Reported - Past Family History Father Family Medical History: Coronary Artery Disease (CAD) Mother Family Medical History: Cancer Additional Family Medical History / Comment(s): brain cancer, choley, appy, hysto Brother(s) Family Medical History: Diabetes Mellitus Sister(s) Family Medical History: Cancer Additional Family Medical History / Comment(s): breast cancer Medications and Allergies Home Medications Medication Instructions Recorded Confirmed Type Baclofen [Lioresal] 10 mg PO HS 05/09/16 05/21/21 History DULoxetine HCL [Cymbalta] 30 mg PO BID 05/09/16 05/21/21 History Gabapentin [Neurontin] 800 mg PO QID 05/09/16 05/21/21 History INSULIN LISPRO (For Pump) [humaLOG 0.01 units SQ-PUMP CONTINUOUS 05/09/16 05/21/21 History (For Pump)] Levothyroxine Sodium [Levoxyl] 150 mcg PO DAILY 05/09/16 05/21/21 History Nortriptyline HCl [Pamelor] 75 mg PO HS 05/09/16 05/21/21 History Simvastatin [Zocor] 20 mg PO HS 05/09/16 05/21/21 History Aspirin EC [Ecotrin] 325 mg PO DAILY 05/21/21 05/21/21 History Cholecalciferol (Vitamin D3) 75 mcg PO DAILY 05/21/21 05/21/21 History [Vitamin D3 (3000 Iu)] Lisinopril-Hctz 20-25 mg 1 tab PO DAILY 05/21/21 05/21/21 History [Zestoretic 20-25] NIFEdipine [NIFEdipine ER] 30 mg PO DAILY 05/21/21 05/21/21 History Nortriptyline [Pamelor] 25 mg PO QAM 05/21/21 05/21/21 History Vitamin B (Unknown) 1 tab PO DAILY 05/21/21 05/21/21 History Allergies Allergy/AdvReac Type Severity Reaction Status Date / Time Sulfa (Sulfonamide Allergy Unknown Verified 05/21/21 13:14 Antibiotics) Childhood Physical Exam Vitals: Vital Signs Temp Pulse Pulse Resp BP BP Pulse Ox 05/22/21 07:00 97.8 F 82 16 142/75 97 05/22/21 02:34 97.5 F L 96 16 144/71 97 05/21/21 19:01 98.1 F 103 H 16 191/76 98 05/21/21 18:00 97.9 F 104 H 18 171/75 98 05/21/21 14:16 81 16 164/79 97 05/21/21 11:32 98 F 97 16 181/92 97 Intake and Output 05/21/21 05/22/21 05/22/21 22:59 06:59 14:59 Other: # Voids 2 2 Weight 85.729 kg Results 05/21/21 12:30 05/21/21 12:30 Cardiac Enzymes 05/21/21 05/21/21 05/21/21 Range/Units 12:30 12:30 14:16 AST 29 (17-59) U/L Troponin I <0.012 0.016 (0.000-0.034) ng/mL 05/21/21 05/21/21 Range/Units 19:03 21:25 AST (17-59) U/L Troponin I <0.012 <0.012 (0.000-0.034) ng/mL Coagulation 05/21/21 Range/Units 12:30 PT 9.6 (9.0-12.0) sec APTT 22.7 (22.0-30.0) sec Lipids 05/22/21 Range/Units 05:44 Triglycerides 143.00 (0.00-149.00) mg/dL Cholesterol 194.00 (0.00-200.00) mg/dL HDL Cholesterol 52.40 (40.00-60.00) mg/dL Cholesterol/HDL Ratio 3.70 Ratio CBC 05/21/21 Range/Units 12:30 WBC 8.6 (3.8-10.6) k/uL RBC 4.83 (4.30-5.90) m/uL Hgb 14.2 (13.0-17.5) gm/dL Hct 43.2 (39.0-53.0) % Plt Count 433 (150-450) k/uL Comprehensive Metabolic Panel 05/21/21 Range/Units 12:30 Sodium 134 L (137-145) mmol/L Potassium 4.7 (3.5-5.1) mmol/L Chloride 101 (98-107) mmol/L Carbon Dioxide 22 (22-30) mmol/L BUN 15 (9-20) mg/dL Creatinine 1.00 (0.66-1.25) mg/dL Glucose 162 H (74-99) mg/dL Calcium 8.9 (8.4-10.2) mg/dL AST 29 (17-59) U/L ALT 26 (4-49) U/L Alkaline Phosphatase 139 H (38-126) U/L Total Protein 7.6 (6.3-8.2) g/dL Albumin 4.0 (3.5-5.0) g/dL Current Medications Generic Name Dose Route Start Last Admin Trade Name Freq PRN Reason Stop Dose Admin Aminophylline 100 mg 05/22/21 09:55 Aminophylline 500 Mg/20 Ml Vial IV 05/22/21 13:57 ONCE PRN Patient Response Aspirin 325 mg 05/22/21 09:00 05/22/21 08:39 Aspirin 325 Mg Tab PO 325 mg DAILY TREASURE Administration Atorvastatin Calcium 10 mg 05/21/21 21:00 05/21/21 19:40 Atorvastatin 10 Mg Tab PO 10 mg HS TREASURE Administration Baclofen 10 mg 05/21/21 21:00 05/21/21 19:40 Baclofen 10 Mg Tab PO 10 mg HS TREASURE Administration Caffeine Citrate 60 mg 05/22/21 09:55 Caffeine Citrate 60 Mg/3 Ml Vial IV 05/22/21 13:57 ONCE PRN Patient Response Cholecalciferol 75 mcg 05/22/21 09:00 05/22/21 08:39 Cholecalciferol 25 Mcg (1000 Iu) Tablet PO 75 mcg DAILY TREASURE Administration Duloxetine HCl 30 mg 05/21/21 21:00 05/22/21 08:39 Duloxetine Hcl 30 Mg Capsule.Dr PO 30 mg BID TREASURE Administration Gabapentin 800 mg 05/21/21 18:00 05/22/21 08:39 Gabapentin 400 Mg Cap PO 800 mg QID TREASURE Administration Lisinopril/HCTZ 1 each 05/22/21 09:00 05/22/21 08:42 Lisinopril-Hctz 20-25 Mg 1 Each Tab PO 1 each DAILY TREASURE Administration Heparin Sodium (Porcine) 5,000 unit 05/22/21 00:00 05/22/21 08:47 Heparin Sodium,Porcine/Pf 5,000 Unit/0.5 Ml Syringe SQ Not Given Q8HR TREASURE Insulin Human Lispro 0.01 unit 05/21/21 14:00 05/21/21 14:37 Insulin Lispro (For Pump) 100 Unit/Ml Vial SQ-PUMP Not Given CONTINUOUS TREASURE Levothyroxine Sodium 150 mcg 05/22/21 06:30 05/22/21 06:11 Levothyroxine 75 Mcg Tab PO 150 mcg 0630 TREASURE Administration Miscellaneous Information 0 unit 05/21/21 23:52 05/22/21 00:00 Insulin Pump Correction Bolus 1 Unit Misc MISCELLANE 4.38 unit ACHS PRN Administration Blood Sugar - High Protocol Nifedipine 30 mg 05/22/21 09:00 05/21/21 20:30 Nifedipine Xl 30 Mg Tab.Er.24 PO 30 mg DAILY TREASURE Administration Nitroglycerin 0.4 mg 05/21/21 14:21 Nitroglycerin Sl Tabs 0.4 Mg Tab SUBLINGUAL Q5M PRN Chest Pain Nortriptyline HCl 25 mg 05/22/21 09:00 05/22/21 08:40 Nortriptyline 25 Mg Cap PO 25 mg QAM TREASURE Administration Nortriptyline HCl 75 mg 05/21/21 21:00 05/21/21 20:30 Nortriptyline 25 Mg Cap PO 75 mg HS TREASURE Administration Regadenoson 0.4 mg 05/22/21 09:55 Regadenoson 0.4 Mg/5 Ml Syringe IV 05/22/21 13:57 ONCE PRN Per Protocol Intake and Output 05/21/21 05/22/21 05/22/21 22:59 06:59 14:59 Other: # Voids 2 2 Weight 85.729 kg 05/21/21 12:30 05/21/21 12:30
[2021-05-22 12:25] LABS: Glucose,Whole Blood 161 mg/dL (75-99)
--- NOTE | 2021-05-22 13:11 | NM ---
EXAMINATION TYPE: NM stress lexiscan cardiolite DATE OF EXAM: 05/22/2021 COMPARISON: 05/09/2016 HISTORY: 55-year-old male with chest pain TECHNIQUE: After the intravenous administration of 10.1 mCi Tc 99m Sestamibi - Cardiolite resting SP ECT images acquired 55 minutes post injection. The patient received 0.4mg Lexiscan, 24.9 mCi Tc 99m Sestamibi - Stress images obtained [address] injection FINDINGS: Review of stress and rest SPECT images demonstrates mild area of decreased perfusion along the mid an terior wall on rest suggesting attenuation artifact. The area normalizes on stress. Additional fixed decreased perfusion along the inferior wall suggesting diaphragmatic attenuation artifact. No distinc t perfusion abnormality. Gated analysis shows normal wall motion with an estimated left ventricular ejection fraction of 60 %. TID is calculated at 1.06, upper limits of normal. IMPRESSION: Scattered areas of attenuation artifact such as along the inferior wall. No convincing reversibility to suggest inducible ischemia.
[2021-05-22] MEDS: INSPUCOR MISCELLANE PRN ×2 (13:19)
[2021-05-22] MEDS: INSULIN LISPRO (For Pump) 100 UNIT/ML VIAL SQ-PUMP SCH (13:20)
--- NOTE | 2021-05-22 13:21 | P.STRESS ---
- Stress Test Note Stress Test Results/Findings: Exam Performed: NM stress lexiscan cardiolite Exam Date: 05/22/21 Reason for Exam: CHEST PAIN Height: 5 ft 4 in Weight: 85.73 kg Protocol: LEXISCAN Stage: NA Duration of Exercise: 5 MIN INFUSION TI Resting Heart Rate: 82 Resting Blood Pressure: 158/71 Maximum Achieved Heart Rate: 106 Maximum Achieved Blood Pressure: 176/64 85% PMHR: 139 100% PMHR: 163 METS: NA Technologist Comment: Stress Test Results/Findings: At baseline EKG showed normal sinus rhythm, normal axis, no significant ST or T- wave abnormalities. Patient recieved IV infusion of Lexiscan 0.4mg and at peak infusion EKG showed significant change from baseline. Conclusions: 1. Normal EKG response to Lexiscan infusion 2. Nuclear imaging to be reported separately.
[2021-05-22 13:22] VITALS: BP 118/71; PULSE 104
[2021-05-22] MEDS: NIFEdipine XL 30 MG TAB.ER.24 PO SCH (13:22)
[2021-05-22 14:05] VITALS: TEMP 98.2
--- NOTE | 2021-05-22 14:41 | P.DS ---
Providers Date of admission: 05/21/21 14:21 Expected date of discharge: 05/22/21 Attending physician: Sylvain Vee MD Primary care physician: Tejas Myers MD Hospital Course: Discharge Diagnosis: Chest pain, acute coronary event ruled out Hypertensive urgency, Monitor vital signs and continue daily aspirin, atorvastatin, lisinopril/hydrochlorothiazide, and Procardia. Type 1 insulin-dependent diabetes mellitus, continue personal home insulin pump. Hypothyroidism, continue daily medication regimen with bubble pyroxene 150 g each morning. Hyperlipidemia, continue daily medication regimen with atorvastatin 10 mg nightly. Neuropathy, Patient to continue daily medication regimen with Neurontin. Hospital Course: Patient is a very pleasant 55-year-old male with a past medical history of type 1 insulin-dependent diabetes mellitus, hypothyroidism, neuropathy, hypertension and hyperlipidemia. He presented to the emergency department with a chief complaint of intermittent left anterior wall chest pain. patient reports experiencing intermittent chest pain to left anterior chest radiating across his chest and into bilateral arms off and on for the past 2 weeks. Patient denies anything making it any better or worse and he denies having any associated symptoms including dizziness, lightheadedness, palpitations, shortness of br eath, dyspnea with exertion, nausea, or experiencing any numbness/tingling/weakness/swelling in his extremities. Patient reports he's had one prior episode similar to this and was informed by his primary doctor that he had elevated potassium levels. Patient reports he was encouraged by his and his primary doctor to come into the emergency department for cardiac workup. In the ER and EKG was completed showing normal sinus rhythm at 94 bpm with no noted T wave or ST abnormality showing no signs of acute ischemia. Labs completed revealing normal troponin of less than 0.012 and unremarkable CBC and CMP. Chest x-ray was completed revealing mild pulmonary vascular congestion. upon initial evaluation patient hypertensive with blood pressure 181/92. Patient was admitted under our services with consultation to cardiology. Troponins were trended all negative 4. Lipid profile unremarkable. Echocardiogram completed revealing EF between 60 and 65% with no significant valvular abnormalities. Patient underwent left computed tomography scan stress test and per cardiology this was negative for inducible ischemia clearing patient from cardiac standpoint recommending outpatient follow-up with their office. Patient reports full resolution of chest pain and currently denies having any complaints including headache, lightheadedness, dizziness, palpitations, shortness of breath, or nausea. Blood pressure significantly improved. Patient is medically stable at this time and being discharged home. Patient to follow up outpatient with PCP and cardiology. Physical exam: Vital signs reviewed and stable. General: Nontoxic, no distress and appears stated age. Derm: Skin warm and dry, normal coloration for ethnicity. Head: Atraumatic, normocephalic and symmetric. Eyes: EOMs intact, no lid lag, and anicteric sclera Mouth: no lip lesions, mucus membranes moist Cardiovascular: regular rate and rhythm with normal S1S2, no murmur, positive posterior tibial pulses bilaterally, and cap refill < 2 seconds. Lungs: Respirations even, regular, and unlabored on room air. Lungs CTA bilaterally, no rhonchi, no rales, no wheezing, and no accessory muscle usage. Abdominal: soft, nontender to palpation, no guarding, no appreciable organomegaly Ext: ROM intact. No gross muscle atrophy, no edema, no contractures Neuro: Speech clear, face symmetrical and CN II-XII grossly intact with no noted focal neuro deficits Psych: Alert and oriented to person, place, time, and situation. Appropriate and pleasant affect. A total of 35 minutes of time were spent preparing this complex discharge summary. Kenneth Puga NP rendered care for this patient independently, reviewed the findings and plan as documented in the note above. I did not physically speak with or examine the patient on this date. Patient Condition at Discharge: Stable Plan - Discharge Summary Discharge Rx Participant: No New Discharge Prescriptions: Continue Gabapentin [Neurontin] 800 mg PO QID Nortriptyline HCl [Pamelor] 75 mg PO HS Levothyroxine Sodium [Levoxyl] 150 mcg PO DAILY Baclofen [Lioresal] 10 mg PO HS DULoxetine HCL [Cymbalta] 30 mg PO BID Simvastatin [Zocor] 20 mg PO HS INSULIN LISPRO (For Pump) [humaLOG (For Pump)] 0.01 units SQ-PUMP CONTINUOUS Cholecalciferol (Vitamin D3) [Vitamin D3 (3000 Iu)] 75 mcg PO DAILY NIFEdipine [NIFEdipine ER] 30 mg PO DAILY Nortriptyline [Pamelor] 25 mg PO QAM Vitamin B (Unknown) 1 tab PO DAILY Aspirin EC [Ecotrin] 325 mg PO DAILY Lisinopril-Hctz 20-25 mg [Zestoretic 20-25] 1 tab PO DAILY Discharge Medication List Baclofen [Lioresal] 10 mg PO HS 05/09/16 [History] DULoxetine HCL [Cymbalta] 30 mg PO BID 05/09/16 [History] Gabapentin [Neurontin] 800 mg PO QID 05/09/16 [History] INSULIN LISPRO (For Pump) [humaLOG (For Pump)] 0.01 units SQ-PUMP CONTINUOUS 05/09/16 [History] Levothyroxine Sodium [Levoxyl] 150 mcg PO DAILY 05/09/16 [History] Nortriptyline HCl [Pamelor] 75 mg PO HS 05/09/16 [History] Simvastatin [Zocor] 20 mg PO HS 05/09/16 [History] Aspirin EC [Ecotrin] 325 mg PO DAILY 05/21/21 [History] Cholecalciferol (Vitamin D3) [Vitamin D3 (3000 Iu)] 75 mcg PO DAILY 05/21/21 [History] Lisinopril-Hctz 20-25 mg [Zestoretic 20-25] 1 tab PO DAILY 05/21/21 [History] NIFEdipine [NIFEdipine ER] 30 mg PO DAILY 05/21/21 [History] Nortriptyline [Pamelor] 25 mg PO QAM 05/21/21 [History] Vitamin B (Unknown) 1 tab PO DAILY 05/21/21 [History] Follow up Appointment(s)/Referral(s): Tejas Myers MD [Primary Care Provider] - 1-2 days Activity/Diet/Wound Care/Special Instructions: Activity: As tolerated. Take breaks as needed. Diet: Heart healthy and carb consistent diet. Avoid salts, or foods with hidden salts such as canned or boxed foods and frozen dinners. Extra salt makes your heart work harder and traps the fluid in your body for longer. Special Instructions: Take all of your medications as directed and remember to keep all of your doctor's appointments and follow-up as needed. Thank you for allowing us to participate in your care, it was truly a pleasure having you for our patient!!! Discharge Disposition: HOME SELF-CARE
--- NOTE | 2021-05-23 11:57 | ECHOS ---
Stress Test Results/Findings: Exam Performed: NM stress lexiscan cardiolite Exam Date: 05/22/21 Reason for Exam: CHEST PAIN Height: 5 ft 4 in Weight: 85.73 kg Protocol: LEXISCAN Stage: NA Duration of Exercise: 5 MIN INFUSION TI Resting Heart Rate: 82 Resting Blood Pressure: 158/71 Maximum Achieved Heart Rate: 106 Maximum Achieved Blood Pressure: 176/64 85% PMHR: 139 100% PMHR: 163 METS: NA Technologist Comment: Stress Test Results/Findings: At baseline EKG showed normal sinus rhythm, normal axis, no significant ST or T- wave abnormalities. Patient received IV infusion of Lexiscan 0.4mg and at peak infusion EKG showed significant change from baseline. Conclusions: 1. Normal EKG response to Lexiscan infusion 2. Nuclear imaging to be reported separately. MTDD
== END 2021-05-22 15:44 | disposition home or self-care (01) ==
LOC: EC 11:23 → 6NMEDSUR 14:21
PROVIDERS: ADMIT Hospitalist; ATTEND Hospitalist
DX: R07.89 Other chest pain (principal); I16.0 Hypertensive urgency; E10.40 Type 1 diabetes mellitus with diabetic neuropathy, unspecified; E03.9 Hypothyroidism, unspecified; E78.5 Hyperlipidemia, unspecified; R09.89 Other specified symptoms and signs involving the circulatory and respiratory systems; I10 Essential (primary) hypertension; R45.4 Irritability and anger; Z91.19 Patient's noncompliance with other medical treatment and regimen; Z71.9 Counseling, unspecified; Z90.49 Acquired absence of other specified parts of digestive tract; Z96.41 Presence of insulin pump (external) (internal); Z79.4 Long term (current) use of insulin; Z79.899 Other long term (current) drug therapy; Z79.890 Hormone replacement therapy; Z79.82 Long term (current) use of aspirin; Z88.2 Allergy status to sulfonamides; Z82.49 Family history of ischemic heart disease and other diseases of the circulatory system; Z83.3 Family history of diabetes mellitus; Z80.8 Family history of malignant neoplasm of other organs or systems; Z80.3 Family history of malignant neoplasm of breast
CPT/HCPCS: 99285; 36415; 93005; 93017; 93306; 80061; 80053; 83735; 84484; 85025; 85610; 85730; 71046; 78452; G0378 ×2; A9500; J2785

== ENCOUNTER → 2021-06-11 | Outpatient (CLI) | payer MEDICARE ==
--- NOTE | 2021-06-11 13:52 | XR ---
Bilateral shoulders HISTORY: 719.41,M25.519 3 views of each shoulder are submitted on a total 6 images Acromioclavicular joint arthropathy changes present. Distal acromion is slightly downturned. There ma y be a distal acromial spur bilaterally. Lung apices are unremarkable as visualized. No fracture or d islocation. IMPRESSION: Acromioclavicular joint arthropathy. Correlate for impingement.
[2021-06-11 18:05] LABS: Basophils # (A) 0.07 X 10*3/uL (0.00-0.10); Basophils % (A) 0.8 %; Eosinophils # (A) 0.21 X 10*3/uL (0.04-0.35); Eosinophils % (A) 2.4 %; HCT 42.2 % (39.6-50.0); HGB 13.3 g/dL (13.0-17.0); Immature Grans, Automated 0.4 %; Lymphocytes # (A) 1.81 X 10*3/uL (0.90-5.00); Lymphocytes % (A) 20.3 %; MCHC 31.5 g/dL (32.0-37.0); MCV 88.8 fL (80.0-97.0); Mean Platelet Volume 9.7 fL (9.5-12.2); Monocytes # (A) 0.84 X 10*3/uL (0.20-1.00); Monocytes % (A) 9.4 %; NRBC Per 100 WBC 0 /100 WBCS (0.0-0.0); Neutrophils # (A) 5.95 X 10*3/uL (1.80-7.70); Neutrophils % (A) 66.7 %; Platelet Count 472 X 10*3/uL (140-440); RBC 4.75 X 10*6/uL (4.40-5.60); RDW 13.3 % (11.5-14.5); WBC 8.92 X 10*3/uL (4.50-10.00)
[2021-06-11 23:04] LABS: Magnesium 2.2 mg/dL (1.5-2.4); Phosphorus 2.6 mg/dL (2.4-5.1)
[2021-06-11 23:05] LABS: ALT 29 U/L (10-49); AST 25 U/L (14-35); African American GFR (CKD) 79.2 (60.0-200.0); Albumin 3.9 g/dL (3.8-4.9); Albumin/Globulin Ratio 1.29 (1.60-3.17); Alkaline Phosphatase 128 U/L (41-126); BUN/Creat Ratio 18.12 Ratio (12.00-20.00); Blood Urea Nitrogen 21.2 mg/dL (9.0-27.0); Calcium 9.1 mg/dL (8.7-10.3); Carbon Dioxide 17.2 mmol/L (20.0-27.5); Chloride 101 mmol/L (96-109); Chol/HDL Ratio 2.68 Ratio; Globulin 3.1 g/dL (1.6-3.3); Glucose 65 mg/dL (70-110); LDL Cholesterol,Calculated 100.7 mg/dL (0.0-131.0); Non-African American GFR(CKD) 68.3 (60.0-200.0); Potassium 5.1 mmol/L (3.5-5.5); Sodium 135 mmol/L (135-145); Total Bilirubin <0.15 mg/dL (0.30-1.20); VLDL Calculation 13.88 mg/dL (5.00-40.00)
[2021-06-12 00:21] LABS: Urine Creatinine 75.1 mg/dL (39.0-259.0)
== END | disposition home or self-care (01) ==
LOC: RADXRMAIN 12:26
PROVIDERS: ATTEND Internal Medicine
DX: Z12.5 Encounter for screening for malignant neoplasm of prostate (principal); E03.9 Hypothyroidism, unspecified; E10.65 Type 1 diabetes mellitus with hyperglycemia; M12.812 Other specific arthropathies, not elsewhere classified, left shoulder; M12.811 Other specific arthropathies, not elsewhere classified, right shoulder
CPT/HCPCS: 84439; 80061; 80053; 83735; 84100; 84443; 85025; 82043; 82570; 83036; 73030; G0103

== ENCOUNTER → 2021-09-19 | Outpatient (CLI) | payer MEDICARE ==
[2021-09-19 15:02] LABS: ALT 22 U/L (10-49); AST 22 U/L (14-35); African American GFR (CKD) 69.7 (60.0-200.0); Albumin 3.9 g/dL (3.8-4.9); Alkaline Phosphatase 121 U/L (41-126); BUN/Creat Ratio 15.23 Ratio (12.00-20.00); Blood Urea Nitrogen 19.8 mg/dL (9.0-27.0); Calcium 9.1 mg/dL (8.7-10.3); Carbon Dioxide 22.6 mmol/L (20.0-27.5); Chloride 101 mmol/L (96-109); Chol/HDL Ratio 2.36 Ratio; Glucose 191 mg/dL (70-110); LDL Cholesterol,Calculated 67.8 mg/dL (0.0-131.0); Non-African American GFR(CKD) 60.1 (60.0-200.0); Potassium 4.8 mmol/L (3.5-5.5); Sodium 134 mmol/L (135-145); Total Bilirubin <0.15 mg/dL (0.30-1.20); Total Protein 6.9 g/dL (6.2-8.2); VLDL Calculation 15.28 mg/dL (5.00-40.00)
[2021-09-19 20:03] LABS: Urine Creatinine 83.1 mg/dL (39.0-259.0)
== END | disposition home or self-care (01) ==
LOC: LABWHC1 08:30
PROVIDERS: ATTEND Internal Medicine Endocrinology, Diabetes & Metabolism
DX: E10.65 Type 1 diabetes mellitus with hyperglycemia (principal); E55.9 Vitamin D deficiency, unspecified
CPT/HCPCS: 36415; 80053; 80061; 82043; 82306; 82570; 83036; 84443

== ENCOUNTER → 2022-05-15 | Outpatient (CLI) | payer OTHER ==
[2022-05-15 16:25] LABS: Basophils % (A) 0 %; Eosinophils # (A) 0.2 k/uL (0-0.7); Eosinophils % (A) 4 %; HGB 12.6 gm/dL (13.0-17.5); Lymphocytes # (A) 1.5 k/uL (1.0-4.8); Lymphocytes % (A) 26 %; MCH 29.2 pg (25.0-35.0); MCHC 32.2 g/dL (31.0-37.0); MCV 90.5 fL (80.0-100.0); Mean Platelet Volume 7.7; Monocytes # (A) 0.4 k/uL (0-1.0); Monocytes % (A) 7 %; Neutrophils # (A) 3.6 k/uL (1.3-7.7); Neutrophils % (A) 61 %; Platelet Count 364 k/uL (150-450); RBC 4.31 m/uL (4.30-5.90); RDW 13.3 % (11.5-15.5); WBC 5.9 k/uL (3.8-10.6)
[2022-05-15 16:29] LABS: Reticulocyte % 1.5 % (0.5-2.0)
[2022-05-16 05:01] LABS: Protein, Total 6.3 g/dL (6.2-8.2)
[2022-05-16 05:18] LABS: % Iron Saturation 9.99 (15.00-50.00); Ferritin 13.3 ng/mL (22.0-322.0)
[2022-05-16 13:20] LABS: Albumin 3.47 g/dL (3.80-4.90); Gamma Globulin 0.77 g/dL (0.70-1.50)
== END | disposition home or self-care (01) ==
LOC: LABWHC1 15:03
PROVIDERS: ATTEND Internal Medicine
DX: D64.9 Anemia, unspecified (principal)
CPT/HCPCS: 36415; 82607; 82728; 82746; 83540; 83550; 84165; 85025; 85045

== ENCOUNTER → 2022-06-21 | Outpatient (CLI) | payer OTHER ==
--- NOTE | 2022-06-24 07:31 | CT ---
EXAMINATION TYPE: CT ankle RT wo con CT DLP: 217 mGycm, Automated exposure control for dose reduction was used. DATE OF EXAM: 06/21/2022 5:11 PM COMPARISON: None available CLINICAL INDICATION:Male, 57 years old with history of M25.571; H, follow up on fracture from ortho pedics. fall x 2 weeks ago. TECHNIQUE: Axial images were obtained of the right ankle without the use of IV contrast. Additional coronal and sagittal reformatted images and soft tissue and bone window were obtained for review. 3-D reconstruction was created on a separate workstation. FINDINGS: Acute nondisplaced posterior malleolar fracture with intra-articular extension. No callus f ormation identified. Additional acute comminuted minimally displaced distal fibular fracture at the l evel of the ankle joint. No callous formation identified. Small ankle joint effusion. There is surrou nding soft tissue edema. Vascular sclerosis demonstrated. IMPRESSION: 1. Acute nondisplaced posterior malleolar fracture with intra-articular extension. 2. Minimally acute displaced comminuted distal fibular fracture.
== END | disposition home or self-care (01) ==
LOC: RADCTMAIN 16:25
PROVIDERS: ATTEND Podiatrist
DX: S82.831A Other fracture of upper and lower end of right fibula, initial encounter for closed fracture (principal)

== ENCOUNTER → 2022-06-28 | Day surgery (SDC) | payer OTHER ==
[~2022-06-28] MED LIST: DEXAMETHASONE SOD PHOSPHATE 4 MG/ML 1 ML VIAL IV ONE; HYDROcodone/APAP 7.5-325MG 1 EACH TAB ONE; HYDROcodone/APAP 7.5-325MG 1 EACH TAB PO ONE; HYDROmorphone 0.5 MG/0.5 ML SYRINGE IVP PRN; KETOROLAC 15 MG/ML 1 ML VIAL ONE; LACTATED RINGERS 1,000 ML IV ONE; LACTATED RINGERS 1,000 ML IV SCH; LIDOCAINE 2% INJ 20 MG/ML (2 ML VIAL) ONE; MIDAZOLAM 2 MG/2 ML VIAL IV PRN; MIDAZOLAM 2 MG/2 ML VIAL IVP ONE; ONDANSETRON 4 MG/2 ML VIAL IVP ONE; PHENYLEPHRINE-0.9% NACL SYG 1,000 MCG/10 ML SYRINGE ONE; PROPOFOL 10 MG/ML 20 ML VIAL IV ONE; ROPIVACAINE 5 MG/ML 30 ML VIAL ONE; SCOPOLAMINE 1 MG/72 HR PATCH TRANSDERM ONE; SODIUM CHLORIDE 0.9% (PF) 10 ML VIAL ONE; ceFAZolin 1,000 MG in SODIUM CHLORIDE 0.9% 1,000 ML IRRIGATION ONE; fentaNYL (PF) 50 MCG/ML 2 ML AMP IVP ONE; fentaNYL (PF) 50 MCG/ML 2 ML AMP ONE
[2022-06-28 12:18] LABS: Glucose,Whole Blood 163 mg/dL (70-110)
--- NOTE | 2022-06-28 14:22 | P.ANPRN ---
Procedure Note - Anesthesia - Nerve Block Performed Right Popliteal Single Time Out Performed: Yes (1344) Date of Procedure: 06/28/22 Procedure Start Time: 13:45 Procedure Stop Time: 13:50 Location of Patient: PreOp Indication: Acute Post-Operative Pain, Requested by Surgeon Specifically requested for management of pain by DrVamshi: Richard Mejia Sedation Type: Sedate with meaningful contact maintained Preparation: Sterile Prep Position: Supine Catheter: None Needle Types: Pajunk Needle Gauge: 21 Ultrasound used to visualize needle placement: Yes Ultrasound used to observe medication spread: Yes Injectate: 0.5% Ropivacaine (see comment for volume) (15cc + 15cc nacl pf) Blood Aspirated: No Pain Paresthesia on Injection Noted: No Resistance on Injection: Normal Image Stored and Saved: Yes Events: Uneventful and Well Tolerated
--- NOTE | 2022-06-28 14:23 | P.ANPRN ---
Procedure Note - Anesthesia - Nerve Block Performed Right Adductor Canal Single Time Out Performed: Yes (1344) Date of Procedure: 06/28/22 Procedure Start Time: 13:51 Procedure Stop Time: 13:54 Location of Patient: PreOp Indication: Acute Post-Operative Pain, Requested by Surgeon Specifically requested for management of pain by DrVamshi: Richard Mejia Sedation Type: Sedate with meaningful contact maintained Preparation: Sterile Prep Position: Supine Catheter: None Needle Types: Pajunk Needle Gauge: 21 Ultrasound used to visualize needle placement: Yes Ultrasound used to observe medication spread: Yes Injectate: 0.5% Ropivacaine (see comment for volume) (15cc + 15cc nacl pf) Blood Aspirated: No Pain Paresthesia on Injection Noted: No Resistance on Injection: Normal Image Stored and Saved: Yes Events: Uneventful and Well Tolerated
--- NOTE | 2022-06-28 15:17 | FL ---
EXAMINATION TYPE: FL guidance operating room, XR ankle limited RT DATE OF EXAM: 06/28/2022 COMPARISON: NONE HISTORY: 57-year-old male right ankle ORIF bimalleolar fractures FINDINGS: Images during ORIF of right ankle fracture fixation. FLUOROSCOPY Fluoroscopy time of 57.4 seconds was used during right ankle ORIF. 2 image/s document/s the procedur e. DAP: 0.6490 Gycm2 IMPRESSION: Intraoperative fluoroscopy as above.
[2022-06-28 15:18] VITALS: TEMP 97
--- NOTE | 2022-06-28 15:21 | P.OP ---
Date of Procedure: 06/28/22 Preoperative Diagnosis: Displaced right bimalleolar ankle fracture Postoperative Diagnosis: Same Procedure(s) Performed: Open reduction with internal fixation right bimalleolar ankle fracture Implants: 3.0 mm x 130 mm Arthrex Fibulock Nail Syndesmotic screws 2 Distal locking screws 2 Anesthesia: GETA Surgeon: Richard Mejia Estimated Blood Loss (ml): 2 Pathology: none sent Condition: stable Disposition: PACU Description of Procedure: Prior to the patient being brought to the operative room, anesthesia administered nerve block on the right lower extremity. The patient was brought into the operating room and placed on table in supine position. Timeout was taken to confirm correct patient identifiers, correct lateral malleolus surgery, and correct procedure. Once all staff in the room were in agreement timeout, the patient was induced and placed under general anesthesia. A well-padded tourniquet was placed on the right thigh and a bump underneath the right hip to internally rotate the right leg. The right leg was then prepped and draped in usual manner. Was exsanguinated and the tourniquet inflated to 250 mmHg. Utilizing fluoroscopy, the distal tip of the fibula was identified. A jeni was made approximately 1 cm distal to this landmark for the placement of the incision. Then a metallic marker was used to raw a parallel bisection through the shaft of the fibula. A small incision was made over the distal jeni it was bluntly dissected through the subcutaneous tissue. A guidewire was then placed at the tip of the lateral malleolus and advanced to the level ankle joint. Fluoroscopy was then utilized to confirm that the wire was in the medullary canal. AP and lateral views show that the wire was centrally located. The wire was advanced into the shaft of the fibula. The distal reamer was then placed and reamed to proper depth. Then the smaller reamer was placed over the guidewire and reamed to the proper depth. The wound is then thoroughly irrigated with antibiotic saline. A 3.0 mm x 130 mm Arthrex FibuLock Nail, which had RAD been attached to the insertion jig on the back table, was then inserted through the drill hole and impacted to proper depth. Once proper depth was achieved a wire was passed through the jig and into the fibula to prevent it from rotating. Drill guides for the distal locking screws were placed through the jig it abutted against the skin. Small stab incisions are made in the area of the drill guide and bluntly dissected down to the fibula. Drilling was performed under fluoroscopy to make sure that the lateral gutter of the ankle joint wasn't penetrated by the drill bit. Then 3.0 cancellous screws were inserted the drill holes which passed through the nail until the head engaged lateral cortex. Once that was completed the drill guides were placed in the areas of the jig designated for the syndesmotic screw placement. Drilling was performed until the medial cortex of the tibia was breached. Screws then placed and tightened with the ankle in maximum dorsiflexion and the clamp holding the reduction of the syndesmosis. The screws were advanced until the heads engage lateral cortex of the fibula. Fluoroscopic imaging confirmed anatomic reduction of the fracture with proper placement of the hardware on AP, mortise and lateral views. Live fluoroscopy was also used to perform syndesmotic stress testing. Stress testing was negative for any significant gapping of the medial gutter or the syndesmosis. All wounds were thoroughly irrigated with antibiotic saline. Small incisions were all closed with 3-0 nylon. An Arthrex jumpstart dressing and then dry sterile dressing applied to the right ankle. The tourniquet was released and capillary refill return to all digits on the right foot. Patient's placed a below-knee fracture boot ankle neutral position. Anesthesia was reversed and the patient was taken recovery with vital signs stable
[2022-06-28 15:22] LABS: Glucose,Whole Blood 289 mg/dL (70-110)
[2022-06-28 16:12] VITALS: RESP 18
[2022-06-28 16:33] VITALS: BP 180/83; PULSE 111
== END | disposition home or self-care (01) ==
LOC: OR 11:23
PROVIDERS: ATTEND Podiatrist
DX: S82.841A Displaced bimalleolar fracture of right lower leg, initial encounter for closed fracture (principal); G89.18 Other acute postprocedural pain; I10 Essential (primary) hypertension; E10.40 Type 1 diabetes mellitus with diabetic neuropathy, unspecified; Z88.2 Allergy status to sulfonamides; Z90.49 Acquired absence of other specified parts of digestive tract; Z83.3 Family history of diabetes mellitus; E78.5 Hyperlipidemia, unspecified; E03.9 Hypothyroidism, unspecified; Z79.890 Hormone replacement therapy; Z79.899 Other long term (current) drug therapy; X58.XXXA Exposure to other specified factors, initial encounter
CPT/HCPCS: 64447; 64445; 84132; 73600; 27814; C1713; J1100; J0690 ×2; J2405; J3010; J2795; J1885; J2370; J2704; J1170; J2001